=== PATIENT | female | born 1985 | race Caucasian/White ===

== ENCOUNTER 2020-07-18 17:19 | Outpatient (REF) | payer OTHER, SELFPAY ==
[2020-07-19 04:41] LABS: HBS Num1 52.74 mIU/mL (0-7.99); HBc Num1 0.04 S/CO (0.00-0.79); Hepatitis B Core Antibody Nonreactive (Nonreactive); ~HepC Num1 0.08 S/CO (0.00-0.79); ~Hepatitis B Surface Antibody REACTIVE (Nonreactive); ~Hepatitis C Antibody Nonreactive (Nonreactive)
[2020-07-19 04:44] LABS: HBsAGNum1 0.17 S/CO (0.00-0.99); Hepatitis B Surface Antigen Negative (Negative)
[2020-07-22 04:09] LABS: Hepatitis A Antibody IgG Nonreactive (Nonreactive); ~Hepatitis A Antibody IgG 0.28 S/CO (0.00-0.99)
== END 2020-07-18 17:20 | disposition home or self-care (01) ==
LOC: HO.LAB 17:19
PROVIDERS: PCP Pediatrics; Visit Provider Internal Medicine Gastroenterology
DX: R79.89 Other specified abnormal findings of blood chemistry (principal)
CPT/HCPCS: 86704; 86706; 86708; 86803; 87340

== ENCOUNTER 2020-07-20 16:11 | Emergency (ER) | payer OTHER, SELFPAY ==
[2020-07-20 18:58] VITALS: BP 178/88; PULSE 95; RESP 16; TEMP 36.9; O2SAT 99; BMI 37.4
--- NOTE | 2020-07-20 20:27 | XR_ITS ---
EXAMINATION: PORTABLE CHEST 1 VIEW CLINICAL INFORMATION: ruq pain, r flank pain . COMPARISON: No recent pertinent prior studies are available for comparison. TECHNIQUE: Portable frontal view of the chest was obtained. FINDINGS: The lungs are well expanded. No focal infiltrate, effusion, edema, or pneumothorax. Cardiac and mediastinal silhouettes are within normal limits for technique. No acute bony abnormality seen. XR/XR chest 1V IMPRESSION: No evidence of acute disease.
--- NOTE | 2020-07-20 20:27 | CT_ITS ---
EXAMINATION: CT ABDOMEN AND PELVIS WITHOUT CONTRAST CLINICAL INFORMATION: Right upper quadrant pain. Flank pain. COMPARISON: Ultrasound of abdomen 11/03/2019. CT scan abdomen pelvis 12/01/2016 TECHNIQUE: Multidetector volumetric imaging was performed from the superior aspect of the liver through the pubic symphysis. Sagittal and coronal reformatted images were obtained on the technologist's workstation. This CT examination was performed using dose optimization techniques as appropriate, variously including the following: *Automated exposure control *Adjustment of mA and/or kV according to patient size (this includes techniques or standardized protocols for targeted exams where dose is matched to indication/reason for exam; i.e. extremities or head) *Use of iterative reconstruction technique DLP: 864 mGy-cm FINDINGS: LUNG BASES: The visualized lung bases are unremarkable. LIVER, GALLBLADDER, AND BILIARY TREE: The liver is normal in size, shape, and attenuation. No focal hepatic lesion or biliary ductal dilatation is present. The gallbladder is unremarkable with no evidence of radiopaque gallstones, gallbladder wall thickening, or obvious pericholecystic inflammatory changes. PANCREAS: Unremarkable. SPLEEN: Unremarkable. ADRENAL GLANDS: Unremarkable. KIDNEYS AND URETERS: The kidneys are normal in size, shape, and attenuation. No hydronephrosis, hydroureter, or calculi seen. No perinephric stranding. BLADDER: Unremarkable. GASTROINTESTINAL TRACT: Status post gastric surgery with surgical suture line along the greater curvature the stomach. No acute change of the bowel. No bowel obstruction. No bowel wall thickening or edema. Moderate volume of stool in colon. No diverticula. The appendix is normal. ABDOMINAL WALL: No significant hernia is appreciated. LYMPH NODES: Normal. VASCULAR: Unremarkable. PELVIC VISCERA: Unremarkable. OSSEOUS STRUCTURES: Unremarkable. CT/CT abdomen pelvis wo con IMPRESSION: No acute abnormality CT scan abdomen pelvis.
[2020-07-20 20:29] VITALS: BP 155/95; PULSE 96; RESP 16; TEMP 37; O2SAT 100
[2020-07-20 20:54] LABS: MANUAL DIFF FLAG NO
[2020-07-20 20:55] LABS: Basophils Percent Auto 0.5 % (0-2); Eosinophils Absolute Auto 0.2 X10*3/uL (0.0-0.4); Eosinophils Percent Auto 2.8 % (0-4); Hematocrit 40.9 % (37-47); Hemoglobin 13.7 g/dl (12.0-16.0); Imm Gran Abs Auto 0.01 X10*3/uL (0.00-0.03); Imm Gran Pct Auto 0.1 % (0.0-0.4); Lymphocytes Absolute Auto 1.9 X10*3/uL (1.2-4.9); Lymphocytes Percent Auto 24.7 % (20-40); Mean Corpuscular HGB Conc 33.5 g/dl (31.0-35.0); Mean Corpuscular Hemoglobin 31.2 pg (27.0-33.0); Mean Corpuscular Volume 93.2 fL (80-98); Mean Platelet Volume 10.6 fL (9.4-12.3); Monocytes Absolute Auto 0.6 X10*3/uL (0.1-1.2); Monocytes Percent Auto 7.9 % (2-11); Platelet Count 229 X10*3/uL (160-400); Red Blood Count 4.39 X10*6/uL (4.20-5.50); Red Cell Distribution Width 12.8 % (11.0-16.0); White Blood Count 7.9 X10*3/uL (4.8-10.8)
[2020-07-20 21:01] LABS: Glucose Urine UA NEG (NEG); Leukocyte Esterase Urine NEG (NEG); Nitrite Urine NEG (NEG); Specific Gravity - Urine 1.025 (1.005-1.025); Urine Blood NEG (NEG); Urine Ketones >=80 MG/DL (NEG); Urine Protein NEG (NEG-TRACE)
[2020-07-20 21:06] LABS: Appearance Urine CLEAR; Color Urine YELLOW; UPreg QC Valid YES; Urine Pregnancy NEGATIVE (NEGATIVE)
[2020-07-20 21:13] LABS: Alanine Aminotransferase 33 U/L (0-31); Albumin Level 4.5 g/dL (3.5-5.0); Alkaline Phosphatase 79 U/L (39-117); Anion Gap 13 (12-20); Aspartate Amino Transferase 35 U/L (5-31); Bilirubin Total 0.9 mg/dL (0.0-1.0); Blood Urea Nitrogen 7 mg/dL (9-16); Calcium 8.9 mg/dL (8.4-10.2); Carbon Dioxide 27 mmol/L (22-29); Chloride 97 mmol/L (96-108); Creatinine Clr Calc Pharmacy 133.9; Estimated Glomerular Filt Rate > 60; Glucose Random 84 mg/dL (60-115); Lipase 17 U/L (8-78); Potassium 3.4 mmol/l (3.3-5.1); Sodium 134 mmol/L (135-145)
--- NOTE | 2020-07-20 21:29 | ED.ABDPAIN ---
HPI - Abdominal Pain General Chief Complaint: Abdominal Pain Stated Complaint: Abdominal Pain Time Seen by Provider: 07/20/20 20:26 Source: patient Mode of arrival: ambulatory Limitations: no limitations History of Present Illness HPI narrative: 35-year-old female past medical history of gastric sleeve, hypertension, and peripheral edema presents with right upper quadrant abdominal pain that radiates to the right flank and right scapula. This pain is 10/10 , is intermittent, started 1 day ago, and causes nausea. She has been unable to eat or drink for the past few hours, and states that she could not take her omeprazole or other medications because of nausea. she does not report any chest pain, palpitations, fevers, chills, abdominal distention, dysuria, hematuria, and sick contacts. MD elicited complaint: abdominal pain and flank pain Pertinent past history: gastritis Onset (ago): day(s) ( One) Pain Consistency: intermittent Location: RUQ and R flank Severity: severe Pain scale (0-10): 10 Quality: cramping, stabbing and aching Radiation: epigastric and R flank Relieving factors: nothing Associated symptoms: nausea Related Data Patient : No Allergies Allergy/AdvReac Type Severity Reaction Status Date / Time No Known Allergies Allergy Unverified 06/02/20 15:26 Benadryl Allergy Unknown hives Uncoded 03/04/20 00:00 Review of Systems Review of Systems Constitutional: No Weight loss, No Fever, No Chills, No Night Sweats, No Fatigue, No Malaise ENT/Mouth: No Hearing loss, No Ear Pain, No Nasal Congestion, No Sinus Pain, No Hoarseness, No sore throat, No Rhinorrhea, No Swallowing Difficulty Eyes: No Eye Pain, No Swelling, No Redness, No Foreign Body, No Discharge, No Vision Changes Cardiovascular: No Chest Pain, No SOB, No Dyspnea on Exertion, No Orthopnea, No Edema, No Palpitations Respiratory: No Cough, No Sputum, No Wheezing, No Smoke Exposure, No Dyspnea Gastrointestinal: Positive Nausea, no Vomiting, no Diarrhea, positive abdominal Pain, No Hematochezia, No Melena Genitourinary: no irregular bleeding, No Dysuria, No Urinary Frequency, No Hematuria, No Urinary Incontinence, No Urgency, positive Flank Pain, No Urinary Flow Changes, No Hesitancy Musculoskeletal: No joint pain, No Myalgias, No Joint Swelling Skin: No Skin Lesions, No rash Neuro: No Weakness, No Numbness, No Paresthesias, No Loss of Consciousness, No Dizziness, No Headache Psych: No Anxiety/Panic, No Depression, No SI/HI/AH/VH, No Social Issues Heme/Lymph: No Bruising, No Bleeding,No Lymphadenopathy Endocrine: No Polyuria, No Polydipsia, No Temperature Intolerance Yes all other systems are reviewed and are negative Physical Exam Vital Signs: Vital Signs: Vital Signs Temp Pulse Resp BP Pulse Ox 07/20/20 22:28 98.5 F 110 H 20 128/73 97 07/20/20 21:59 93 20 159/75 H 98 07/20/20 20:29 98.6 F 96 16 155/95 H 100 07/20/20 18:58 98.5 F 95 16 178/88 H 99 Body Mass Index 37.4 Appearance: Alert. Oriented X3. moderate distress. Eyes: Pupils equal, round and reactive to light. ENT: Pharynx normal. Neck: Normal inspection. Neck supple. CVS: Normal heart rate and rhythm. Pulses normal. Respiratory: No respiratory distress. Breath sounds normal. Abdomen: Soft and tender to palpation to the right upper, right lower, and epigastric quadrants. Positive CVA tenderness to the right side. Negative psoas and obturator. Negative Boggs and McBurney sign. Skin: Skin warm and dry. Normal skin color. Normal skin turgor. Extremities: No lower extremity edema. Neuro: No motor deficit. No sensory deficit. Course Course Course Narrative: 35-year-old patient status post gastric sleeve in 2017 presents with right upper quadrant abdominal pain, radiating to the right flank. Plan of care is for CT scan of the abdomen as she has had extensive abdominal surgeries, CBC, Chem 7, and pain management with fluid resuscitation. Lab values show mild hyponatremia at 134, repleted with 1 L of normal saline, minimally elevated AST at 35, ALT at 33, CT scan is negative for acute findings. Patient's heart rate is slightly elevated at 110, patient states to be extraordinarily anxious and Has been crying intermittently. Patient is hemodynamically stable, no indication of sepsis as heart rate is elevated due to anxiety. Plan of care is for patient to be discharged home with follow-up with Gastroenterology. She does have an appointment on Saturday. Patient does understand that even though the CT scan is negative that this could also be an early appendicitis, and that if symptoms persist that she must return for further evaluation. Patient verbalized understanding of and agrees to plan of care to discharge home. MDM - Abdominal Pain Differential Diagnosis Differential diagnosis: Likely abdominal pain, acute appendicitis, bowel perforation, calculus of kidney, constipation, diverticulitis, endometriosis, gastroenteritis, gastritis, ovarian cyst, pancreatitis, peptic ulcer disease, renal colic and small bowel obstruction Medical Records Attestation: I reviewed the patient's medical records. Lab Data Attestation: I reviewed the patient's lab results. Result diagrams: 07/20/20 20:39 07/20/20 20:39 Labs: Lab Results 07/20/20 07/20/20 07/20/20 Range/Units 20:39 20:39 20:39 WBC 7.9 (4.8-10.8) X10*3/uL RBC 4.39 (4.20-5.50) X10*6/uL Hgb 13.7 (12.0-16.0) g/dl Hct 40.9 (37-47) % MCV 93.2 (80-98) fL MCH 31.2 (27.0-33.0) pg MCHC 33.5 (31.0-35.0) g/dl RDW 12.8 (11.0-16.0) % Plt Count 229 (160-400) X10*3/uL MPV 10.6 (9.4-12.3) fL Immature Gran % (Auto) 0.1 (0.0-0.4) % Neut % (Auto) 64.0 (45-73) % Lymph % (Auto) 24.7 (20-40) % Loving % (Auto) 7.9 (2-11) % Eos % (Auto) 2.8 (0-4) % Baso % (Auto) 0.5 (0-2) % Lymph # (Auto) 1.9 (1.2-4.9) X10*3/uL Loving # (Auto) 0.6 (0.1-1.2) X10*3/uL Eos # (Auto) 0.2 (0.0-0.4) X10*3/uL Baso # (Auto) 0.0 (0.0-0.2) X10*3/uL Abs Immat Gran (auto) 0.01 (0.00-0.03) X10*3/uL Absolute Neuts (auto) 5.0 (2.0-8.3) X10*3/uL Absolute Nucleated RBC 0.000 (0.0-0.012) X10*3/uL Nucleated RBC % (auto) 0.0 (0.0-0.2) /100WBC Sodium 134 L (135-145) mmol/L Potassium 3.4 (3.3-5.1) mmol/l Chloride 97 (96-108) mmol/L Carbon Dioxide 27 (22-29) mmol/L Anion Gap 13 (12-20) BUN 7 L (9-16) mg/dL Creatinine 0.67 (0.5-1.4) mg/dL Estim Creat Clear Calc 133.9 Estimated GFR > 60 Random Glucose 84 (60-115) mg/dL Calcium 8.9 (8.4-10.2) mg/dL Total Bilirubin 0.9 (0.0-1.0) mg/dL AST 35 H (5-31) U/L ALT 33 H (0-31) U/L Alkaline Phosphatase 79 (39-117) U/L Total Protein 7.0 (6.5-8.0) g/dL Albumin 4.5 (3.5-5.0) g/dL Lipase 17 (8-78) U/L Urine Color YELLOW Urine Appearance CLEAR Urine pH 6.0 (5.0-8.0) Ur Specific Odell 1.025 (1.005-1.025) Urine Protein NEG (NEG-TRACE) MG/DL Urine Glucose (UA) NEG (NEG) MG/DL Urine Ketones >=80 (NEG) MG/DL Urine Blood NEG (NEG) Urine Nitrite NEG (NEG) Ur Leukocyte Esterase NEG (NEG) Urine Test NEGATIVE (NEGATIVE) Imaging Data CT scan - abdomen: Attestation: I personally reviewed and interpreted this imaging study as follows: Radiologist's impression: FINDINGS: LUNG BASES: The visualized lung bases are unremarkable. LIVER, GALLBLADDER, AND BILIARY TREE: The liver is normal in size, shape, and attenuation. No focal hepatic lesion or biliary ductal dilatation is present. The gallbladder is unremarkable with no evidence of radiopaque gallstones, gallbladder wall thickening, or obvious pericholecystic inflammatory changes. PANCREAS: Unremarkable. SPLEEN: Unremarkable. ADRENAL GLANDS: Unremarkable. KIDNEYS AND URETERS: The kidneys are normal in size, shape, and attenuation. No hydronephrosis, hydroureter, or calculi seen. No perinephric stranding. BLADDER: Unremarkable. GASTROINTESTINAL TRACT: Status post gastric surgery with surgical suture line along the greater curvature the stomach. No acute change of the bowel. No bowel obstruction. No bowel wall thickening or edema. Moderate volume of stool in colon. No diverticula. The appendix is normal. ABDOMINAL WALL: No significant hernia is appreciated. LYMPH NODES: Normal. VASCULAR: Unremarkable. PELVIC VISCERA: Unremarkable. OSSEOUS STRUCTURES: Unremarkable. CT/CT abdomen pelvis wo con IMPRESSION: No acute abnormality CT scan abdomen pelvis. Chest x-ray: Attestation: I personally reviewed and interpreted this imaging study as follows: Radiologist's impression: COMPARISON: No recent pertinent prior studies are available for comparison. TECHNIQUE: Portable frontal view of the chest was obtained. FINDINGS: The lungs are well expanded. No focal infiltrate, effusion, edema, or pneumothorax. Cardiac and mediastinal silhouettes are within normal limits for technique. No acute bony abnormality seen. XR/XR chest 1V IMPRESSION: No evidence of acute disease. Discharge Plan Discharge Clinical Impression: History of sleeve gastrectomy Abdominal pain Qualifiers: Abdominal location: right upper quadrant Qualified Code(s): R10.11 - Right upper quadrant pain Patient Disposition: Home, Self-Care Instructions: Abdominal Pain (ED) Additional Instructions: you were evaluated for right upper quadrant pain. CT scan of the abdomen is negative for acute findings. If pain persists or you develop fevers, chills, or any other concerning symptoms please return for re-evaluation, this pain could always be an early appendicitis. Please continue to follow-up with your assisted living home director as scheduled On Saturday. Thank you for choosing this emergency department for evaluation. Please follow-up with primary care physician as needed. Return to the emergency department for any new, concerning, or worsening symptoms. Interventions: ED Discharge Assessment Last Done: 07/20/20 23:15 Discharge Date/Time: 07/20/20 23:16 [facility] Past Medical History Attestation statement: The following information was validated with the patient. Source: old records reviewed Medical History (Updated 07/21/20 @ 00:00 by Yahaira Cooper) Asthma Gastritis Hypertension Surgical History (Updated 07/20/20 @ 22:58 by Emilee Harden NP) History of colonoscopy History of esophagogastroduodenoscopy (EGD) History of sleeve gastrectomy Family History Family History Father HTN (hypertension) Mother HTN (hypertension) Paternal Grandfather CAD (coronary artery disease) Myocardial infarction Maternal Grandfather Stroke Social History Social History Alcohol intake: former Smoking Status: Never smoker Use of substances other than those prescribed or required for medical reasons: No Advance Directives: No Advance Directives Information Provided: Yes
[2020-07-20] MEDS: 0.9 % Sodium Chloride 1,000 ML 999 ML IVCONT (21:42)
[2020-07-20] MEDS: Ketorolac Tromethamine 30 MG/ML VIAL IVPUSH (21:42)
[2020-07-20] MEDS: ondansetron HCL 4 MG/2 ML VIAL IVPUSH (21:43)
[2020-07-20] MEDS: Morphine Sulfate 4 MG/ML CARTRIDGE IVPUSH (21:43)
[2020-07-20 21:59] VITALS: BP 159/75; PULSE 93; RESP 20; O2SAT 98
[2020-07-20 22:28] VITALS: BP 128/73; PULSE 110; RESP 20; TEMP 36.9; O2SAT 97
== END 2020-07-20 23:16 | disposition home or self-care (01) ==
PROVIDERS: Nurse Practitioner Family; Emergency Provider Internal Medicine; PCP Pediatrics
DX: R10.11 Right upper quadrant pain (principal); I10 Essential (primary) hypertension; Z98.84 Bariatric surgery status; Z79.899 Other long term (current) drug therapy
CPT/HCPCS: 36415; 71045; 74176; 80053; 81003; 81025; 83690; 85025; 96361; 96374; 96375; 99284; J1885; J2270; J2405

== ENCOUNTER 2020-07-26 08:16 | Outpatient (REF) | payer OTHER, SELFPAY ==
--- NOTE | 2020-07-26 08:20 | FL_ITS ---
EXAMINATION: XR GI SERIES CLINICAL INFORMATION: Epigastric pain. History of gastric sleeve procedure COMPARISON: Previous CT of the abdomen and pelvis July 2020 and abdominal ultrasound October 2019 TECHNIQUE: Upper GI was performed using thin and thick barium and effervescent granules. FINDINGS: There is significant gastroesophageal reflux. There is a small fixed hiatal hernia. No esophageal mass or stricture is appreciated. There are postsurgical changes from gastric sleeve procedure. The stomach and duodenum are otherwise normal appearing. No fold thickening, mass, ulcer or stricture is seen. FLUOROSCOPY TIME: 1.1 minutes DOSE AREA PRODUCT: 11 palafox per centimeter squared. Total dose 42 mgy. 34 saved fluoroscopic images. FL/FL upper GI series IMPRESSION: Significant gastroesophageal reflux and small fixed hiatal hernia. Postsurgical changes from gastric procedure.
== END 2020-07-26 08:17 | disposition home or self-care (01) ==
LOC: HO.XRAY 08:16
PROVIDERS: PCP Pediatrics; Visit Provider Internal Medicine Gastroenterology
DX: R10.13 Epigastric pain (principal)
CPT/HCPCS: 74240

== ENCOUNTER → 2022-05-03 11:45 | Outpatient (BNVA) | payer OTHER, SELFPAY | PROVIDERS: PCP Pediatrics; Visit Provider Internal Medicine Gastroenterology | DX: K21.9 Gastro-esophageal reflux disease without esophagitis (principal); Z90.3 Acquired absence of stomach [part of] | CPT/HCPCS: 99212 ==

== ENCOUNTER → 2022-06-19 08:50 | Outpatient (BNVA) | payer OTHER, SELFPAY | PROVIDERS: PCP Pediatrics; Visit Provider Physician Assistant | DX: E66.9 Obesity, unspecified (principal); K21.9 Gastro-esophageal reflux disease without esophagitis; Z90.3 Acquired absence of stomach [part of]; Z68.37 Body mass index [BMI] 37.0-37.9, adult | CPT/HCPCS: 99212 ==

== ENCOUNTER 2022-06-20 08:59 | Outpatient (REF) | payer OTHER, SELFPAY ==
[2022-06-20 09:11] LABS: MANUAL DIFF FLAG NO
[2022-06-20 10:17] LABS: Basophils Percent Auto 0.7 % (0-2); Eosinophils Absolute Auto 0.3 X10*3/uL (0.0-0.4); Eosinophils Percent Auto 4.6 % (0-4); Hematocrit 40.7 % (37.0-47.0); Hemoglobin 13.2 g/dl (12.0-16.0); Imm Gran Abs Auto 0.02 X10*3/uL (0.00-0.03); Imm Gran Pct Auto 0.3 % (0.0-0.4); Lymphocytes Absolute Auto 1.6 X10*3/uL (1.2-4.9); Lymphocytes Percent Auto 27.2 % (20-40); Mean Corpuscular HGB Conc 32.4 g/dl (31.0-35.0); Mean Corpuscular Hemoglobin 30.1 pg (27.0-33.0); Mean Corpuscular Volume 92.7 fL (80.0-98.0); Mean Platelet Volume 11.2 fL (9.4-12.3); Monocytes Absolute Auto 0.4 X10*3/uL (0.1-1.2); Monocytes Percent Auto 7.3 % (2-11); Neutrophils Absolute Auto 3.5 x10*3/uL (2.0-8.3); Neutrophils Percent Auto 59.9 % (45-73); Platelet Count 223 X10*3/uL (160-400); Red Blood Count 4.39 X10*6/uL (4.20-5.50); Red Cell Distribution Width 13.2 % (11.0-16.0); White Blood Count 5.9 X10*3/uL (4.8-10.8)
[2022-06-20 10:46] LABS: Estimated Average Glucose 91 mg/dL; Hemoglobin A1c % 4.8 %
[2022-06-20 11:08] LABS: Alanine Aminotransferase 21 U/L (0-31); Albumin Level 4.6 g/dL (3.5-5.0); Alkaline Phosphatase 89 U/L (39-117); Anion Gap 17 (12-20); Aspartate Amino Transferase 24 U/L (5-31); Bilirubin Total 0.7 mg/dL (0.0-1.0); Blood Urea Nitrogen 10 mg/dL (9-16); C Reactive Protein 1.02 mg/dL (< or = 0.50); Calcium 9.2 mg/dL (8.4-10.2); Carbon Dioxide 21 mmol/L (22-29); Chloride 107 mmol/L (96-108); Cholesterol 166 mg/dL; Estimated Glomerular Filt Rate > 60; Glucose Random 85 mg/dL (60-115); HDL Cholesterol 64 mg/dL; Iron 109 mcg/dL (30-160); LDL Cholesterol Calculated 93 mg/dl; Percent Iron Saturation 26 % (15-50); Potassium 4.6 mmol/L (3.3-5.1); Sodium 140 mmol/L (135-145); Total Iron Binding Capacity 426 mcg/dL (228-428); Total Protein 7.1 g/dL (6.5-8.0); Triglycerides 49 mg/dL; Unsaturated Iron Binding 317 ug/dL
[2022-06-20 11:20] LABS: Ferritin 25 ng/mL (10-122); TSH reflex Free T4 1.27 uIU/mL (0.32-4.0); Vitamin D 25-OH Total 26.7 ng/mL (>30)
[2022-06-20 11:28] LABS: Folate > 20.0 ng/mL (> or = 4.0); Vitamin B12 393 pg/mL (200-900)
[2022-06-20 11:52] LABS: Insulin 7 uU/mL (2-29)
[2022-06-22 13:22] LABS: Calcium (PTHI) 9.1 mg/dL (8.6-10.2); PTHI 94 pg/mL (16-77)
[2022-06-22 19:52] LABS: Zinc 83 mcg/dL (60-130)
[2022-06-23 20:47] LABS: Vitamin A 45 mcg/dL (38-98)
[2022-06-25 06:06] LABS: Vitamin B1 18 nmol/L (8-30)
== END 2022-06-20 09:00 | disposition home or self-care (01) ==
LOC: HO.LAB 08:59
PROVIDERS: PCP Pediatrics; Visit Provider Physician Assistant
DX: E66.9 Obesity, unspecified (principal); K21.9 Gastro-esophageal reflux disease without esophagitis; Z90.3 Acquired absence of stomach [part of]
CPT/HCPCS: 36415; 80053; 80061; 82306; 82607; 82728; 82746; 83036; 83525; 83540; 83970; 84425; 84443; 84590; 84630; 85025; 86140

== ENCOUNTER → 2022-06-28 14:13 | Outpatient (BNVA) | payer OTHER, SELFPAY | PROVIDERS: PCP Pediatrics; Visit Provider Internal Medicine Gastroenterology | DX: K21.9 Gastro-esophageal reflux disease without esophagitis (principal); Z90.3 Acquired absence of stomach [part of] | CPT/HCPCS: 99212 ==

== ENCOUNTER 2022-07-24 07:59 | Outpatient (REF) | payer OTHER, SELFPAY ==
[2022-07-25 12:47] LABS: H Pylori Breath Test Negative (Negative)
== END 2022-07-24 08:00 | disposition home or self-care (01) ==
LOC: HO.LNP 07:59
PROVIDERS: PCP Pediatrics; Visit Provider Physician Assistant
DX: E66.9 Obesity, unspecified (principal); K21.9 Gastro-esophageal reflux disease without esophagitis; Z90.3 Acquired absence of stomach [part of]
CPT/HCPCS: 83013; 99211

== ENCOUNTER 2022-08-01 08:39 | Outpatient (REF) | payer OTHER, SELFPAY ==
--- NOTE | ~2022-08-01 | FL_ITS ---
PROCEDURE: XR FLUOROSCOPY UPPER GI WITH AIR CLINICAL INFORMATION: Obesity. COMPARISON: 07/20/2020 TECHNIQUE: Air-contrast upper GI examination with thin and thick barium. FINDINGS: There is normal apposition of the vocal cords while saying E . There is normal elevation of the soft palate while saying candy . Patient swallowed thin and thick barium without difficulty. No nasopharyngeal reflux or tracheal aspiration identified. There is a small to moderate-sized hiatal hernia present with free gastroesophageal reflux into a distended esophagus with the reflux being persistent and to the level of the thoracic inlet. There is hypomotility of the esophagus. No esophageal mucosal erosion is appreciated. The appearance is similar to prior study of 07/26/2020. Patient status post gastric sleeve surgery. No gastric ulceration or mass appreciated. The duodenal bulb and sweep appeared unremarkable without evidence of delay in gastric emptying. FLUOROSCOPY TIME: 2.4 minutes. DOSE AREA PRODUCT: 20.888 Gy-cm2 (palafox-centimeter squared). FL/FL upper GI w air IMPRESSION: [id number] size hiatal hernia with free gastroesophageal reflux to the level of the thoracic inlet which clears very slowly with hypomotility of the esophagus.
== END 2022-08-01 08:40 | disposition home or self-care (01) ==
LOC: HO.XRAY 08:39
PROVIDERS: PCP Pediatrics; Visit Provider Physician Assistant
DX: E66.9 Obesity, unspecified (principal); K21.9 Gastro-esophageal reflux disease without esophagitis; Z90.3 Acquired absence of stomach [part of]
CPT/HCPCS: 74246

== ENCOUNTER 2022-08-23 11:06 | Emergency (ER) | payer OTHER, SELFPAY ==
--- NOTE | ~2022-08-23 | CT_ITS ---
EXAMINATION: CT ABDOMEN AND PELVIS WITHOUT CONTRAST CLINICAL INFORMATION: Right flank pain. COMPARISON: CT scan of the abdomen and pelvis dated 07/20/2020. TECHNIQUE: Multidetector volumetric imaging was performed from the superior aspect of the liver through the pubic symphysis. Sagittal and coronal reformatted images were obtained on the technologist's workstation. Intravenous and oral contrast limits visceral evaluation. This CT examination was performed using dose optimization techniques as appropriate, variously including the following: *Automated exposure control *Adjustment of mA and/or kV according to patient size (this includes techniques or standardized protocols for targeted exams where dose is matched to indication/reason for exam; i.e. extremities or head) *Use of iterative reconstruction technique DLP: 857 mGy-cm FINDINGS: LUNG BASES: The visualized lung bases are unremarkable. LIVER, GALLBLADDER, AND BILIARY TREE: Mild diffuse decreased hepatic attenuation without focal abnormality. The gallbladder/biliary tree are unremarkable. PANCREAS: Unremarkable. SPLEEN: Unremarkable. ADRENAL GLANDS: Unremarkable. KIDNEYS AND URETERS: The right kidney shows a 0.2 cm interpolar nonobstructing calculus. The left kidney is unremarkable. No hydroureteronephrosis bilaterally. BLADDER: Unremarkable. GASTROINTESTINAL TRACT: Gastric posterior surgical changes are seen. There is a small hiatal hernia. The remainder the stomach is unremarkable. The small bowel and appendix are unremarkable. The colon and rectum are unremarkable. ABDOMINAL WALL: Periumbilical postsurgical changes without significant change. LYMPH NODES: No lymphadenopathy. VASCULAR: Unremarkable. PELVIC VISCERA: Unremarkable. OSSEOUS STRUCTURES: Unremarkable. CT/CT abdomen pelvis wo IV con IMPRESSION: 1. No acute intra-abdominal/pelvic abnormality to explain the patient's pain. 2. Nonobstructing right interpolar intrarenal calculus. No hydroureteronephrosis. 3. Hepatic steatosis. 4. Gastric postsurgical changes with small hiatal hernia.
[2022-08-23 11:15] VITALS: BP 175/97; PULSE 80; RESP 20; TEMP 36.7; O2SAT 95; BMI 37.2
--- NOTE | 2022-08-23 11:15 | ED.ABDPAIN ---
HPI - Abdominal Pain General Chief Complaint: Abdominal Pain <Nicole Garcia NP - Last Filed: 08/23/22 11:20> Stated Complaint: R flank pain <Nicole Garcia NP - Last Filed: 08/23/22 11:20> Time Seen by Provider: 08/23/22 15:35 <Nicole Garcia NP - Last Filed: 08/23/22 11:20> Source: patient <Rk King MD - Last Filed: 08/23/22 16:37> Mode of arrival: ambulatory <Rk King MD - Last Filed: 08/23/22 16:37> Limitations: no limitations <Rk King MD - Last Filed: 08/23/22 16:37> History of Present Illness HPI narrative: Right abdominal pain for 4 days, lightheaded, patient has a history of gastric sleeve. Patient has pressure when she urinates <Rk King MD - Last Filed: 08/23/22 16:37> MD elicited complaint: abdominal pain and flank pain <Rk King MD - Last Filed: 08/23/22 16:37> Onset (ago): day(s) <Rk King MD - Last Filed: 08/23/22 16:37> Pain Consistency: constant <Rk King MD - Last Filed: 08/23/22 16:37> Severity: mild <Rk King MD - Last Filed: 08/23/22 16:37> Quality: fullness <Rk King MD - Last Filed: 08/23/22 16:37> Relieving factors: nothing <Rk King MD - Last Filed: 08/23/22 16:37> Associated symptoms: denies other symptoms <Rk King MD - Last Filed: 08/23/22 16:37> Related Data Home Medications: Home Medications Medication Instructions Recorded Confirmed ferrous sulfate 325 mg (65 mg 325 mg PO Q OTHER DAY 05/03/22 06/28/22 iron) tablet labetalol 100 mg tablet 100 mg PO BID 05/03/22 06/28/22 vitamin with calcium 1 tab PO DAILY 05/03/22 06/28/22 no.72-iron 27 mg-folic acid 1 mg tablet ( Vitamins Plus Low Iron) Previous Rx's Medication Instructions Recorded omeprazole 40 mg capsule,delayed 40 mg PO DAILY 60 days #60 caps 05/03/22 release cholecalciferol (vitamin D3) 25 25 mcg PO DAILY #30 caps 06/21/22 mcg (1,000 unit) capsule cyanocobalamin (vitamin B-12) 100 100 mcg PO DAILY #30 tabs 06/21/22 mcg tablet famotidine 20 mg tablet 20 mg PO BID 30 days #60 tabs 06/28/22 <Nicole Garcia NP - Last Filed: 08/23/22 11:20> Allergies/Adverse Reactions: Allergies Allergy/AdvReac Type Severity Reaction Status Date / Time No Known Allergies Allergy Verified 07/24/22 08:11 Benadryl Allergy Unknown hives Uncoded 06/19/22 09:05 <Nicole Garcia NP - Last Filed: 08/23/22 11:20> Review of Systems Constitutional: Reports no additional constitutional complaints <Rk King MD - Last Filed: 08/23/22 16:37> Eyes: Reports no additional eye complaints <Rk King MD - Last Filed: 08/23/22 16:37> Denies dizziness <Rk King MD - Last Filed: 08/23/22 16:37> Cardiovascular: Reports no additional cardiovascular complaints <Rk King MD - Last Filed: 08/23/22 16:37> Respiratory: Reports as per HPI <Rk King MD - Last Filed: 08/23/22 16:37> Gastrointestinal: Reports no additional gastrointestinal complaints <Rk King MD - Last Filed: 08/23/22 16:37> Genitourinary: Reports no additional female genitourinary complaints <Rk King MD - Last Filed: 08/23/22 16:37> Musculoskeletal: Reports no additional musculoskeletal complaints <Rk King MD - Last Filed: 08/23/22 16:37> Skin/Breast: Denies rash <Rk King MD - Last Filed: 08/23/22 16:37> Reports system reviewed and no additional complaints, except as documented, Denies dizziness and Denies Sensory deficit (Neuro) <Rk King MD - Last Filed: 08/23/22 16:37> Psychiatric: Denies anxiety <Rk King MD - Last Filed: 08/23/22 16:37> [facility] Past Medical History Medical History: Medical History (Updated 08/23/22 @ 16:36 by Rk King MD) Asthma Gastritis Hypertension <Nicole Garcia NP - Last Filed: 08/23/22 11:20> Surgical History: Surgical History History of colonoscopy History of esophagogastroduodenoscopy (EGD) History of sleeve gastrectomy <Nicole Garcia NP - Last Filed: 08/23/22 11:20> Family History Family History: Family History Father HTN (hypertension) Mother HTN (hypertension) Paternal Grandfather CAD (coronary artery disease) Myocardial infarction Maternal Grandfather Stroke <Nicole Garcia NP - Last Filed: 08/23/22 11:20> Social History Social History: Social History Alcohol intake: former Smoked in Last 30 Days: No Use of substances other than those prescribed or required for medical reasons: No Advance Directives: No Advance Directives Information Provided: No Patient : No <Nicole Garcia NP - Last Filed: 08/23/22 11:20> Physical Exam ED Vital Signs: Vital Signs - 24 hr 08/23/22 11:15 08/23/22 16:00 Temperature 98.1 F 98.1 F Pulse Rate 80 77 Respiratory Rate 20 18 Blood Pressure 175/97 H 170/92 H Pulse Oximetry 95 100 Oxygen Delivery Method Room Air Room Air BMI result Body Mass Index 37.2 <Nicole Garcia NP - Last Filed: 08/23/22 11:20> Vital Signs - 24 hr 08/23/22 11:15 08/23/22 16:00 Temperature 98.1 F 98.1 F Pulse Rate 80 77 Respiratory Rate 20 18 Blood Pressure 175/97 H 170/92 H Pulse Oximetry 95 100 Oxygen Delivery Method Room Air Room Air BMI result Body Mass Index 37.2 <Rk King MD - Last Filed: 08/23/22 16:37> Vital Signs - 24 hr 08/23/22 11:15 08/23/22 16:00 Temperature 98.1 F 98.1 F Pulse Rate 80 77 Respiratory Rate 20 18 Blood Pressure 175/97 H 170/92 H Pulse Oximetry 95 100 Oxygen Delivery Method Room Air Room Air BMI result Body Mass Index 37.2 <Nikia López MD - Last Filed: 08/23/22 17:00> Const General: healthy appearing <Rk King MD - Last Filed: 08/23/22 16:37> Nutritional Appearance: average body habitus <Rk King MD - Last Filed: 08/23/22 16:37> Orientation/consciousness: oriented to person and patient oriented x3 <Rk King MD - Last Filed: 08/23/22 16:37> Limitations: no limitations <Rk King MD - Last Filed: 08/23/22 16:37> HENMT Head: Yes normal to inspection <Rk King MD - Last Filed: 08/23/22 16:37> Ears: external ears normal <Rk King MD - Last Filed: 08/23/22 16:37> General nose exam: Normal external nose present <Rk King MD - Last Filed: 08/23/22 16:37> Mouth: Normal oral and palatal mucosa present and oropharynx normal <Rk King MD - Last Filed: 08/23/22 16:37> Throat: Yes posterior oropharynx normal <Rk King MD - Last Filed: 08/23/22 16:37> Eyes General: appearance normal, both eyes and all related structures <Rk King MD - Last Filed: 08/23/22 16:37> Neck Neck: Yes normal visual inspection <Rk King MD - Last Filed: 08/23/22 16:37> Chest Chest palpation & inspection: normal inspection of the chest <Rk King MD - Last Filed: 08/23/22 16:37> Resp Auscultation: clear to auscultation bilaterally <Rk King MD - Last Filed: 08/23/22 16:37> Cardio Jugular venous distension: no JVD <Rk King MD - Last Filed: 08/23/22 16:37> Rate: regular rate <Rk King MD - Last Filed: 08/23/22 16:37> Rhythm: regular rhythm <Rk King MD - Last Filed: 08/23/22 16:37> Heart sounds: S1 normal heart sound present and S2 normal heart sound present <Rk King MD - Last Filed: 08/23/22 16:37> GI Inspection: Yes normal to inspection <Rk King MD - Last Filed: 08/23/22 16:37> Palpation (GI): Soft to palpation, nontender and No hepatosplenomegaly present <Rk King MD - Last Filed: 08/23/22 16:37> Auscultation: normal bowel sounds <Rk King MD - Last Filed: 08/23/22 16:37> General: Yes no CVA tenderness <Rk King MD - Last Filed: 08/23/22 16:37> Back/Spine/Pelvis Back: no CVA tenderness <Rk King MD - Last Filed: 08/23/22 16:37> Skin General skin exam: no rashes or lesions noted <Rk King MD - Last Filed: 08/23/22 16:37> Neuro General: oriented to person and patient oriented x3 <Rk King MD - Last Filed: 08/23/22 16:37> Cranial nerves: Yes CN's II-XII intact bilaterally <Rk King MD - Last Filed: 08/23/22 16:37> Motor exam (neuro): 5/5 motor strength present throughout <Rk King MD - Last Filed: 08/23/22 16:37> Sensory Exam: No Sensory deficit (Neuro) <Rk King MD - Last Filed: 08/23/22 16:37> Extrem General: Yes normal to inspection <Rk King MD - Last Filed: 08/23/22 16:37> Psych Appearance: grossly normal <Rk King MD - Last Filed: 08/23/22 16:37> Course Course Course Narrative: This is a rapid medical exam. deferred additional HPI, ROS, PE to primary provider. 37 yo female w/ history of gastric sleeve here with right flank/abdominal pain since Saturday, decreased PO intake, pain with eating. No nausea.vomiting/diarrhea or urinary symptoms. Will check labs, UA, COVID screen. <Nicole Garcia NP - Last Filed: 08/23/22 11:20> Reevaluation(s) Reevaluation #1: Patient with flank pain most likely renal colic will obtain CT and sign out to Dr López <Rk King MD - Last Filed: 08/23/22 16:37> Time: 16:36 <Rk King MD - Last Filed: 08/23/22 16:37> Medical Decision Making Medical Decision Making MDM Narrative: CT scan of the abdomen pelvis did not show any acute evidence of obstruction, abscess, perforation. No signs of kidney stone. No intra-abdominal pathology. Patient's urine showed no signs of infection. Her electrolyte was good. No need for admission at this time. Will have patient follow-up on an outpatient basis. Her electrolytes are good. Her hemoglobin was reviewed. No evidence of biliary issues on CT scan. Do not think patient will need an ultrasound at this time. Will discharge patient home. <Nikia López MD - Last Filed: 08/23/22 17:00> Differential Diagnoses: Differential diagnosis (Obstruction, abscess, perforation) <Nikia López MD - Last Filed: 08/23/22 17:00> Consideration of admission/observation: Consideration of Admission/Observation (Yes no need for admission) <Nikia López MD - Last Filed: 08/23/22 17:00> Lab Attestation: I reviewed the patient's lab results. (Patient's electrolytes CBC and urine all negative.) <Nikia López MD - Last Filed: 08/23/22 17:00> Tests considered but not performed: Tests Considered But Not Performed <Nikia López MD - Last Filed: 08/23/22 17:00> Prescription medication was considered but ultimately not given after discussion with patient/family. (e.g., pain medication, antiviral, antibiotic): Prescriptions considered but not given <Nikia López MD - Last Filed: 08/23/22 17:00> Chronic conditions affecting care (e.g., diabetes, HTN): Chronic conditions affecting care (e.g., diabetes, HTN) <Nikia López MD - Last Filed: 08/23/22 17:00> Medications Administered Discontinued Medications Generic Name Dose Route Start Last Admin Trade Name Freq PRN Reason Stop Dose Admin Acetaminophen 975 mg 08/23/22 16:33 08/23/22 16:38 Acetaminophen 325 Mg Tablet PO 08/23/22 16:34 975 mg ONCE ONE Administration <Nicole Garcia NP - Last Filed: 08/23/22 11:20> Medications Administered Discontinued Medications Generic Name Dose Route Start Last Admin Trade Name Freq PRN Reason Stop Dose Admin Acetaminophen 975 mg 08/23/22 16:33 08/23/22 16:38 Acetaminophen 325 Mg Tablet PO 08/23/22 16:34 975 mg ONCE ONE Administration <Rk King MD - Last Filed: 08/23/22 16:37> Medications Administered Discontinued Medications Generic Name Dose Route Start Last Admin Trade Name Freq PRN Reason Stop Dose Admin Acetaminophen 975 mg 08/23/22 16:33 08/23/22 16:38 Acetaminophen 325 Mg Tablet PO 08/23/22 16:34 975 mg ONCE ONE Administration <Nikia López MD - Last Filed: 08/23/22 17:00> Discharge Plan Discharge Clinical Impression: Acute flank pain <Nicole Garcia NP - Last Filed: 08/23/22 11:20> Patient Disposition: Home, Self-Care <Nicole Garcia NP - Last Filed: 08/23/22 11:20> Instructions: Flank Pain (ED) <Nicole Garcia NP - Last Filed: 08/23/22 11:20> Prescriptions: No Action cholecalciferol (vitamin D3) 25 mcg (1,000 unit) capsule 25 mcg PO DAILY Qty: 30 5RF cyanocobalamin (vitamin B-12) 100 mcg tablet 100 mcg PO DAILY Qty: 30 5RF labetalol 100 mg tablet 100 mg PO BID Vitamin Plus Low Iron 27 mg iron- 1 mg tablet 1 tab PO DAILY ferrous sulfate 325 mg (65 mg iron) tablet 325 mg PO Q OTHER DAY omeprazole 40 mg capsule,delayed release(DR/EC) 40 mg PO DAILY 60 Days Qty: 60 2RF famotidine 20 mg tablet 20 mg PO BID 30 Days Qty: 60 3RF <Nicole Garcia NP - Last Filed: 08/23/22 11:20> Referrals: Physician,Unknown J [Primary Care Provider] - 08/27/22 <Nicole Garcia NP - Last Filed: 08/23/22 11:20>
[2022-08-23 12:15] LABS: MANUAL DIFF FLAG NO
[2022-08-23 12:18] LABS: Basophils Percent Auto 0.3 % (0-2); Eosinophils Absolute Auto 0.3 X10*3/uL (0.0-0.4); Eosinophils Percent Auto 4.2 % (0-4); Hematocrit 39.6 % (37.0-47.0); Imm Gran Abs Auto 0.02 X10*3/uL (0.00-0.03); Imm Gran Pct Auto 0.3 % (0.0-0.4); Lymphocytes Absolute Auto 1.2 X10*3/uL (1.2-4.9); Lymphocytes Percent Auto 19.2 % (20-40); Mean Corpuscular HGB Conc 32.8 g/dl (31.0-35.0); Mean Corpuscular Hemoglobin 30.4 pg (27.0-33.0); Mean Corpuscular Volume 92.5 fL (80.0-98.0); Mean Platelet Volume 10.6 fL (9.4-12.3); Monocytes Absolute Auto 0.4 X10*3/uL (0.1-1.2); Monocytes Percent Auto 5.8 % (2-11); Neutrophils Absolute Auto 4.3 x10*3/uL (2.0-8.3); Neutrophils Percent Auto 70.2 % (45-73); Platelet Count 194 X10*3/uL (160-400); Red Blood Count 4.28 X10*6/uL (4.20-5.50); Red Cell Distribution Width 13.4 % (11.0-16.0); White Blood Count 6.2 X10*3/uL (4.8-10.8)
[2022-08-23 12:19] LABS: Appearance Urine Clear; Color Urine Yellow; Glucose Urine UA Negative (Negative); Leukocyte Esterase Urine Small (1+) (Negative); Nitrite Urine Negative (Negative); PH 6.5 (5.0-9.0); UMIC TRIGGER UACC YES; Urine Blood Large (3+) (Negative); Urine Ketones Trace mg/dL (Negative); Urine Protein Trace mg/dL (Neg-Trace)
[2022-08-23 12:24] LABS: UPreg QC Valid YES; Urine Pregnancy NEGATIVE (NEGATIVE)
[2022-08-23 12:32] LABS: COVID-19 Test Negative (Negative); IDNOW Serial# 9DB6401D
[2022-08-23 12:36] LABS: Bacteria Urine None Seen (None Seen); Hyaline Casts Urine 0-2 /LPF (0-2); RBC Urine >20 /HPF (0-2); Squamous Epithelial Cell Urine 0-2 /HPF (0-2); UACC Culture Trigger YES; WBC Urine 0-5 /HPF (0-5)
[2022-08-23 12:38] LABS: Alanine Aminotransferase 25 U/L (0-31); Albumin Level 4.6 g/dL (3.5-5.0); Alkaline Phosphatase 86 U/L (39-117); Anion Gap 12 (12-20); Aspartate Amino Transferase 22 U/L (5-31); Bilirubin Direct 0.2 mg/dL (0.0-0.5); Bilirubin Total 0.6 mg/dL (0.0-1.0); Blood Urea Nitrogen 7 mg/dL (9-16); Calcium 9.5 mg/dL (8.4-10.2); Carbon Dioxide 25 mmol/L (22-29); Chloride 107 mmol/L (96-108); Estimated Glomerular Filt Rate > 60; Glucose Random 97 mg/dL (60-115); Lipase 29 U/L (8-78); Potassium 4.5 mmol/L (3.3-5.1); Sodium 139 mmol/L (135-145)
[2022-08-23 16:00] VITALS: BP 170/92; PULSE 77; RESP 18; TEMP 36.7; O2SAT 100
--- NOTE | 2022-08-23 16:31 | PC.NURSE ---
patient a&ox3, vss, pt c/o rt abd and back pain, -05/26, provider notified, call ballard within reach, will continue to monitor
[2022-08-23] MEDS: Acetaminophen 325 MG TABLET 975 MG PO (16:38)
--- NOTE | 2022-08-23 16:42 | PC.NURSE ---
patient medicated per order
== END 2022-08-23 17:39 | disposition home or self-care (01) ==
PROVIDERS: Nurse Practitioner Family; Emergency Provider Emergency Medicine Emergency Medical Services
DX: R42 Dizziness and giddiness (principal); R10.9 Unspecified abdominal pain; Z79.899 Other long term (current) drug therapy; Z20.822 Contact with and (suspected) exposure to COVID-19
CPT/HCPCS: 74176; 80048; 80076; 81001; 81025; 83690; 85025; 87086; 87635; 99284

== ENCOUNTER 2023-01-14 12:49 | Day surgery (SDC) | payer OTHER, SELFPAY ==
[2023-01-14 07:23] VITALS: BMI 37.4
[2023-01-14 13:13] VITALS: BP 123/76; PULSE 100; RESP 20; TEMP 36.1; O2SAT 98
[2023-01-14 13:27] LABS: UPreg QC Valid YES; Urine Pregnancy NEGATIVE (NEGATIVE)
[2023-01-14] MEDS: Lactated Ringers 1,000 ML 100 ML IVCONT (13:33)
--- NOTE | 2023-01-14 14:53 | HO.ANESPROP2 ---
HPI - Anesthesia Eval Consult details Narrative: 37 F for EGD GERD,Asthma . Anxious pre-op PMF Active Problems Active Problems: All Active Problems (Updated 08/24/22 @ 00:00 by Background Allison) Obesity (Acute) GERD (gastroesophageal reflux disease) (Acute) History of sleeve gastrectomy (Acute) Past Medical History Medical History (Updated 08/24/22 @ 00:00 by Background Allison) Asthma Gastritis Hypertension Functional capacity: independent ambulation Family History Family History Father HTN (hypertension) Mother HTN (hypertension) Paternal Grandfather CAD (coronary artery disease) Myocardial infarction Maternal Grandfather Stroke Family history of problems with anesthesia: No Surgical History Surgical History History of colonoscopy History of esophagogastroduodenoscopy (EGD) History of sleeve gastrectomy History of Problems with Anesthesia: No Social History Social History Alcohol intake: former Patient Tobacco Use Status: Never used Tobacco Are you DNR?: No Advance Directives: No Advance Directives Information Provided: Yes Nutrition Risks: No Nutritional Risk Meds Allergies Allergy/AdvReac Type Severity Reaction Status Date / Time diphenhydramine Allergy Hives Verified 01/11/23 12:36 [From Benadryl] Active Medications: Current Medications Albuterol Sulfate (Albuterol Sulfate (0.083%) 2.5 Mg/3 Ml Vial.Neb) 2.5 mg INHALE ONCE PRN PRN Reason: Shortness of Breath/Wheezing Lactated Ringer's (Lr) 1,000 mls @ 100 mls/hr IVCONT .Q10H EBTTY Last Admin: 01/14/23 13:33 Dose: 100 mls/hr Home Medications Medication Instructions Recorded Confirmed Last Taken Type ferrous sulfate 325 mg (65 mg 325 mg PO Q OTHER DAY 05/03/22 06/28/22 01/10/23 History iron) tablet vitamin with calcium 1 tab PO DAILY 05/03/22 06/28/22 01/10/23 History no.72-iron 27 mg-folic acid 1 mg tablet ( Vitamins Plus Low Iron) hydrochlorothiazide 25 mg tablet 25 mg PO DAILY 01/14/23 01/14/23 01/14/23 History Exam Exam Date and Time: January 14, 2023 1453 Height,Weight and Vital Signs: Height 5 ft 4 in Weight 98.883 kg Last Vital Signs Temp 97 F 01/14/23 13:13 Pulse 100 01/14/23 13:13 Resp 20 01/14/23 13:13 BP 123/76 01/14/23 13:13 Pulse Ox 98 01/14/23 13:13 O2 Del Method Room Air 01/14/23 13:13 Pertinent Lab Results Pertinent Lab Results: Laboratory Tests 01/14/23 13:00 Urine Test NEGATIVE Airway Mallampati Class: III TM Dist: >3cm Neck ROM: Full Loose/Missing/Broken Teeth: Yes (chipped upper front ) Assessment and Plan Assessment Anesthesia Assessment: Anesthesia Plan Discussed and Chart Reviewed Final Anesthetic Review Family History of Problems with Anesthesia: No History of Problems with Anesthesia: No NPO: Yes ASA Class: III Final Preanesthetic Review: Meds/Allgs Chart Reviewed, Consent Obtained/Reviewed and Anes Risks/Benef Reviewed Patient Risk: Intermediate Procedure Risk: Intermediate Anesthetic Plan Anesthetic Plan: MAC: Disposition: Standard PACU
--- NOTE | 2023-01-14 15:25 | MHC.SHP ---
Pre-Procedural Eval Section A Date of Service: 01/14/23 The patient is an INPATIENT: No The History & Physical has been completed within 30 days and I have reviewed it.: No Section B Chief Complaint: GERD,Acquired absence of stomach [part of] Details of Present Illness: GERD, status post sleeve gastrectomy Relevant Family History (Specify if Yes): No Present Medications: see Short Stay Collaborative assessment Medical History: Significant History (Asthma Gastritis Hypertension) History of Previous Operations: Relevant previous surgery/procedure and date(s) (History of colonoscopy History of esophagogastroduodenoscopy (EGD) History of sleeve gastrectomy) Allergies: Allergies Allergy/AdvReac Type Severity Reaction Status Date / Time diphenhydramine Allergy Hives Verified 01/11/23 12:36 [From Benadryl] Review of Systems Sugical H&P ROS: Negative: Constitution, Cardiovascular, Respiratory and Gastrointestinal Exam Surgical H&P Exam: Normal: Heart, Normal: Lungs, Normal: Extremities and Normal: Abdomen Plan Diagnosis/Plan: Unchanged I have reviewed the history and physical and performed a pertinent physical examination on my patient. No changes have occurred unless specified. Time Spent With Patient Time: Total time managing care of this patient today ____ minutes.
--- NOTE | 2023-01-14 15:31 | W.PM.OPN ---
Operative Note Operative Note Date of Service: 01/14/23 Narrative: FLEXIBLE TRANSORAL UPPER GASTROINTESTINAL ENDOSCOPY WITH BIOPSIES Pre-op diagnosis: GERD, status post gastric sleeve Post-op diagnosis: GERD, hiatal hernia, Gastric sleeve anatomy Endoscopist:? Ptarick Chandra MD Anesthesia:?MAC Consent: Indications for the procedure and potential complications of bleeding, perforation, reaction to medications and missed diagnosis were discussed with the patient and informed consent was obtained. Instrument: Olympus GIF H 190 mid size upper endoscope Monitoring: Vital signs and clinical assessment, continuous EKG monitoring, Pulse oximetry, Carbon Dioxide monitoring and blood pressure monitoring were done throughout the procedure. Procedure: The patient was placed in the left lateral decubitis position and pre-procedure medications were administered and a bite block was placed. The endoscope was inserted into the mouth and advanced under direct vision to the third part of duodenum. A careful inspection was made as the upper endoscope was withdrawn including a retroflexed examination of the proximal stomach; Findings and interventions are described below. Findings: Larynx: Normal Esophagus: GE junction at 34 cms, small hiatal hernia 34 to 36 cms. No esophagitis or Bass's. Biopsies obtained from proximal esophagus to check for EOE and from distal esophagus to check for esophagitis. Stomach: Gastric sleeve anatomy with normal appearing gastric pouch. Minimal gastric antral erythema. Biopsies were obtained. Grade 3 flap valve on retroflexed examination of the cardia. Duodenum: Normal bulb and descending duodenum. Biopsies were obtained from 3rd part of duodenum to check for celiac sprue Intervention: Biopsies as noted above Impression and Post Procedure Diagnosis: Endoscopy Findings: ESOPHAGUS: GE junction at 34 cms, small hiatal hernia 34 to 36 cms. No esophagitis or Bass's. Biopsies obtained from proximal esophagus to check for EOE and from distal esophagus to check for esophagitis. STOMACH: Minimal antral gastritis Plan: Await pathology results Patient has an appointment on 03/04/23 in the GI [facility] with Patrick Chandra M.D. Above findings were reviewed with the patient and GERD handout was given in the discharge area Patient advised to increase Omeprazole to 20 mg twice daily to manage persistent GERD symptoms.
[2023-01-14 16:11] VITALS: BP 147/81; PULSE 127; TEMP 36.5
[2023-01-14 16:26] VITALS: BP 156/94; PULSE 112; RESP 20; TEMP 36.8; O2SAT 96
== END 2023-01-14 16:49 | disposition home or self-care (01) ==
PROVIDERS: Nurse Practitioner; Visit Provider Internal Medicine Gastroenterology
PROC: 0DJ08ZZ Inspection of Upper Intestinal Tract, Via Natural or Artificial Opening Endoscopic (ICD-10-PCS; CPT 43235; principal; 2023-01-14 14:30)
DX: K21.9 Gastro-esophageal reflux disease without esophagitis (principal); K29.70 Gastritis, unspecified, without bleeding; K44.9 Diaphragmatic hernia without obstruction or gangrene; I10 Essential (primary) hypertension; J45.909 Unspecified asthma, uncomplicated; Z79.899 Other long term (current) drug therapy; Z98.84 Bariatric surgery status
CPT/HCPCS: 43239; 81025; 88305; 88342; J2250; J3010

== ENCOUNTER → 2023-03-04 07:43 | Outpatient (BNVA) | payer OTHER, SELFPAY | PROVIDERS: Visit Provider Internal Medicine Gastroenterology ==

== ENCOUNTER 2023-03-29 08:18 | Outpatient (REF) | payer OTHER, SELFPAY ==
--- NOTE | ~2023-03-29 | US_ITS ---
EXAMINATION: US ABDOMEN COMPLETE CLINICAL INFORMATION: Right upper quadrant pain. Patient with fatty liver and right upper quadrant pain. Rule out gallstones or biliary source of abdominal pain. COMPARISON: CT scan of 08/23/2022 and abdominal ultrasound of 10/24/2019. TECHNIQUE: Real-time imaging of the abdominal viscera. FINDINGS: PANCREAS: Normal. No abnormal mass or peripancreatic inflammatory change. ABDOMINAL AORTA: The proximal, mid, and distal segments are normal in caliber. INFERIOR VENA CAVA: Visualized portions are normal. LIVER: There is increased echogenicity consistent with fatty infiltration. The liver is normal in size. The liver contour is normal. No focal hepatic lesion. There is no intrahepatic biliary duct dilatation seen. GALLBLADDER: Normal. The gallbladder is physiologically distended without evidence of stones, sludge, polyps, wall thickening or pericholecystic fluid. COMMON BILE DUCT: Normal in caliber measuring 0.4 cm in diameter. RIGHT KIDNEY: Normal. No hydronephrosis. No renal calculi or focal parenchymal lesions. The kidney measures 10.7 cm in maximum dimension. Previously noted calculi from CT scan of 08/23/2022 are not identified on this ultrasound study. LEFT KIDNEY: There is an echogenic focus present within the interpolar region consistent with small calculus measuring 2 mm in diameter. No hydronephrosis. No focal parenchymal lesions. The kidney measures 11.9 cm in maximum dimension. SPLEEN: Normal. The spleen measures 10.5 cm in maximum dimension. FREE FLUID: None. US/US abdomen complete IMPRESSION: 1. Findings consistent with fatty infiltration of the liver. No intrahepatic bile duct dilatation or cholelithiasis identified. Common bile duct is not enlarged. 2. 2 mm nonobstructing left renal calculus with previously noted right renal calculi on CT scan not being seen on ultrasound.
== END 2023-03-29 08:19 | disposition home or self-care (01) ==
LOC: HO.HMGCX 08:18
PROVIDERS: PCP Internal Medicine; Visit Provider Internal Medicine Gastroenterology
DX: R10.11 Right upper quadrant pain (principal)
CPT/HCPCS: 76700

== ENCOUNTER → 2023-04-05 08:48 | Outpatient (BNVA) | payer OTHER, SELFPAY | PROVIDERS: Visit Provider Physician Assistant ==

== ENCOUNTER 2023-04-29 15:44 | Outpatient (AMB) | payer OTHER, SELFPAY ==
--- NOTE | 2023-04-29 15:49 | MHC.OFFVISWM ---
Intake VS Expanded 04/29/23 15:55 Height 5 ft 4 in Weight 220 lb BMI 37.8 Blood Pressure Location Rt brachial Blood Pressure Position Sitting Pulse 75 Pulse Source Pulse Oximeter Temp 98.2 F Temperature Source Temporal Artery Scan Pulse Oximetry 99 Oxygen Delivery Method Room Air Body Fat 95.4 Body Fat Percentage 43.4 Free Fat Mass 124.4 Muscle Mass 118.2 Visceral Mass 11.0 Water Mass 89.0 BMR 1,748 Intake Visit Reasons: RE-EST SWL BMI 37.4 Allergies diphenhydramine [From Benadryl] Allergy (Verified 04/29/23 15:52) Hives Medication List - Last Reconciled 04/29/23 by Zena aDs PA-C clonidine HCl 0.2 mg PO BID famotidine 20 mg PO BID 90 days hydrochlorothiazide 25 mg PO DAILY labetalol 200 mg PO TID norethindrone (contraceptive) 0.35 mg PO DAILY omeprazole TAKE 1 CAPSULE (40 MG) BY MOUTH TWICE DAILY FOR 60 DAYS sucralfate (Carafate) 10 mL PO .prn valsartan 80 mg PO DAILY HPI HPI Comments History of Present Illness Details 38yo woman here to re-establish (thi rd time) SW care for revison of LSG . LSG and HH repai r done at [facility] in 2015 by tariq Bang rt scanned in [facility]. Pre op weight w as 220 lbs and low est was 170 lbs. I n December of 2019 es tablished care aga in with Dr Jazzy mott and had visit s for 2 months , lo st 3 lbs and and E GD with normal res ults March [address] Reeves. Had a vagina l delivery Jun 05 and severe refl ux symptoms have r eturned. Sees Dr Leandro verudzco for . No UG I done in recent y ears. Re - establi shed care with us again in Jun 2022 at 220 lbs - came for 1 visit only s shane had in family. PCP has been changing HTN over last 6 month s - on new meds. H as cardiology appt in May - br ing records to us. Had ULS - 03/29 - fatty liver UGI - 08/07 - small to moderate HH with reflux upt to thor acic esophagus and slow clearing. Meal plan: wakes a t 6am and bed at 8 pm 8am- Atkins sh melody mixed with 8 0 z of coffee. 12pm -betsy wrap with tu rkey and cheese. l ettuce and tomato. water 5pm - 1 cup vegetable and 6 o z chicken or sausa ge. water may snac k once in mid afte rnoon on walnuts or cheese sticks a nd apple slices E TRAV - increased he r ETOh for a few m onths and states n one x 2 months. Tobacoo - none M arijuana - none Ex ercise - strolls i n park with her so n 4-5 d/ week. No gym membership or eqipment at home. ? ? [facility] Medical History (Updated 03/14/23 @ 11:14 by Patrick Chandra MD) Asthma Gastritis Hypertension Surgical History History of colonoscopy History of esophagogastroduodenoscopy (EGD) History of sleeve gastrectomy Family History Father HTN (hypertension) Mother HTN (hypertension) Paternal Grandfather CAD (coronary artery disease) Myocardial infarction Maternal Grandfather Stroke Social History Alcohol intake: former Patient Tobacco Use Status: Never used Tobacco Physical Exam Vital Signs: Last Vital Signs Temp 98.2 F 04/29/23 15:55 Pulse 75 04/29/23 15:55 Pulse Ox 99 04/29/23 15:55 Oxygen Delivery Method Room Air 04/29/23 15:55 BMI result Body Mass Index 37.8 Assessment & Plan Assessment & Plan (1) Obesity: Code(s): E66.9 - Obesity, unspecified Plan: This is a 38 yo woman s/p LSG at [facility] with severe reflux and GERD symptms wants revision and HH repair. Blood work, CXR, ECG, Abd ULS and UGI have been ordered. She is being scheduled for RD and BH initial consultations. She will start SWL classes and watch at 3 classes before her next appt with Lavonne. H pylori neg Jul 2022. 1. Adequate sleep of 7-8 hours per night discussed 2. Healthy meal plan All meals/MR's need to take 20 minutes to complete, no carbonated beverages 8 am - 30 gram shake - finish shake coffee - with 2-3 oz of protein shake 12 pm - 30 gram shake 3 pm- bar or yogurt 6 pm- dinner of 4 oz lean protein, 4 oz vegetable - over 20 minutes No drinking while eating Exercise - Cardio 4 d week - LS 2 mile videos The importance of avoiding and breast feeding for at least 18 months after bariatric surgery was discussed in the information session and was reinforced today. Pt will purchase body composition analyzer (recommended list given to patient) and weight herself weekly. Next appt with me in 3 weeks. Text me with any questions and weekly weights. Patient is morbidly obese and is not considered stable at this time.?I spent a total of 60 minutes reviewing/updating records, examining the patient and counseling the patient on weight management as detailed above. (2) History of sleeve gastrectomy: Comment: LSG with hiatal hernia repair 10/27/2015 Code(s): Z90.3 - Acquired absence of stomach [part of] (3) GERD (gastroesophageal reflux disease): Code(s): K21.9 - Gastro-esophageal reflux disease without esophagitis Orders: Orders Vitamin B12 and Folate Today E66.9 - Obesity, unspecified, K21.9 - Gastro-esophageal reflux disease without esophagitis, R10.11 - Right upper quadrant pain Comprehensive Met. Panel Today E66.9 - Obesity, unspecified, K21.9 - Gastro-esophageal reflux disease without esophagitis, R10.11 - Right upper quadrant pain C Reactive Protein Today E66.9 - Obesity, unspecified, K21.9 - Gastro-esophageal reflux disease without esophagitis, R10.11 - Right upper quadrant pain Ferritin Today E66.9 - Obesity, unspecified, K21.9 - Gastro-esophageal reflux disease without esophagitis, R10.11 - Right upper quadrant pain Hemoglobin A1c Today E66.9 - Obesity, unspecified, K21.9 - Gastro-esophageal reflux disease without esophagitis, R10.11 - Right upper quadrant pain Insulin Today E66.9 - Obesity, unspecified, K21.9 - Gastro-esophageal reflux disease without esophagitis, R10.11 - Right upper quadrant pain IRON PROFILE Today E66.9 - Obesity, unspecified, K21.9 - Gastro-esophageal reflux disease without esophagitis, R10.11 - Right upper quadrant pain Lipid Panel Today E66.9 - Obesity, unspecified, K21.9 - Gastro-esophageal reflux disease without esophagitis, R10.11 - Right upper quadrant pain PTHI Today E66.9 - Obesity, unspecified, K21.9 - Gastro-esophageal reflux disease without esophagitis, R10.11 - Right upper quadrant pain TSH reflex Free T4 Today E66.9 - Obesity, unspecified, K21.9 - Gastro-esophageal reflux disease without esophagitis, R10.11 - Right upper quadrant pain Vitamin A Today E66.9 - Obesity, unspecified, K21.9 - Gastro-esophageal reflux disease without esophagitis, R10.11 - Right upper quadrant pain Vitamin B1 Today E66.9 - Obesity, unspecified, K21.9 - Gastro-esophageal reflux disease without esophagitis, R10.11 - Right upper quadrant pain Vitamin D 25-OH Total Today E66.9 - Obesity, unspecified, K21.9 - Gastro-esophageal reflux disease without esophagitis, R10.11 - Right upper quadrant pain Zinc Today E66.9 - Obesity, unspecified, K21.9 - Gastro-esophageal reflux disease without esophagitis, R10.11 - Right upper quadrant pain Complete Blood Count Auto Diff Today E66.9 - Obesity, unspecified, K21.9 - Gastro-esophageal reflux disease without esophagitis, R10.11 - Right upper quadrant pain ECG 12 lead EKG Today K21.9 - Gastro-esophageal reflux disease without esophagitis, Z90.3 - Acquired absence of stomach [part of] XR chest 2V Today K21.9 - Gastro-esophageal reflux disease without esophagitis, Z90.3 - Acquired absence of stomach [part of] Coding Level of Care Code Est Pt Level 5 (73850) Diagnoses Obesity E66.9 History of sleeve gastrectomy Z90.3 GERD (gastroesophageal reflux disease) K21.9
[2023-04-29 15:55] VITALS: PULSE 75; TEMP 36.8; O2SAT 99; BMI 37.8
== END 2023-04-29 16:30 | disposition home or self-care (01) ==
PROVIDERS: Visit Provider Physician Assistant
DX: E66.9 Obesity, unspecified (principal); Z68.37 Body mass index [BMI] 37.0-37.9, adult; Z90.3 Acquired absence of stomach [part of]; Z98.84 Bariatric surgery status; K21.9 Gastro-esophageal reflux disease without esophagitis
CPT/HCPCS: 99215

== ENCOUNTER → 2023-04-29 15:44 | Outpatient (BNVA) | payer OTHER, SELFPAY | PROVIDERS: Visit Provider Physician Assistant | DX: E66.9 Obesity, unspecified (principal); K21.9 Gastro-esophageal reflux disease without esophagitis; R10.11 Right upper quadrant pain; Z68.37 Body mass index [BMI] 37.0-37.9, adult; Z90.3 Acquired absence of stomach [part of] | CPT/HCPCS: 99212 ==

== ENCOUNTER 2023-04-30 09:03 | Outpatient (REF) | payer OTHER, SELFPAY ==
--- NOTE | ~2023-04-30 | XR_ITS ---
EXAMINATION: XR CHEST 2 VIEWS CLINICAL INFORMATION: Gastroesophageal reflux disease, without esophagitis. COMPARISON: Chest radiographs dated 07/20/2020. TECHNIQUE: Frontal and lateral views of the chest were obtained. FINDINGS: The heart, great vessels, pulmonary vasculature and mediastinum are normal. The lungs show no focal infiltrate, effusion or pneumothorax. There is mild elevation of the right hemidiaphragm. There is no acute osseous abnormality. XR/XR chest 2V IMPRESSION: No active cardiopulmonary disease.
[2023-04-30 09:41] LABS: MANUAL DIFF FLAG NO
--- NOTE | 2023-04-30 09:48 | ECG_ITS ---
Test Reason : gerd Blood Pressure : / mmHG Vent. Rate : 064 BPM Atrial Rate : 064 BPM P-R Int : 146 ms QRS Dur : 136 ms QT Int : 462 ms P-R-T Axes : 028 073 005 degrees QTc Int : 476 ms Normal sinus rhythm Right bundle branch block Abnormal ECG When compared with ECG of 01-DEC-2016 00:39, Right bundle branch block is now Present Referred By: Zena Das Electronically Signed By:LUZ RICHARD
[2023-04-30 10:17] LABS: Basophils Percent Auto 0.5 % (0-2); Eosinophils Absolute Auto 0.2 X10*3/uL (0.0-0.4); Eosinophils Percent Auto 5.3 % (0-4); Hematocrit 38.1 % (37.0-47.0); Hemoglobin 12.5 g/dl (12.0-16.0); Imm Gran Abs Auto 0.01 X10*3/uL (0.00-0.03); Imm Gran Pct Auto 0.2 % (0.0-0.4); Lymphocytes Absolute Auto 1.3 X10*3/uL (1.2-4.9); Lymphocytes Percent Auto 32.1 % (20-40); Mean Corpuscular HGB Conc 32.8 g/dl (31.0-35.0); Mean Corpuscular Hemoglobin 29.9 pg (27.0-33.0); Mean Corpuscular Volume 91.1 fL (80.0-98.0); Monocytes Absolute Auto 0.3 X10*3/uL (0.1-1.2); Monocytes Percent Auto 8.2 % (2-11); Neutrophils Absolute Auto 2.2 x10*3/uL (2.0-8.3); Neutrophils Percent Auto 53.7 % (45-73); Platelet Count 213 X10*3/uL (160-400); Red Blood Count 4.18 X10*6/uL (4.20-5.50); Red Cell Distribution Width 13.8 % (11.0-16.0); White Blood Count 4.2 X10*3/uL (4.8-10.8)
[2023-04-30 10:42] LABS: Estimated Average Glucose 91 mg/dL; Hemoglobin A1c % 4.8 %
[2023-04-30 11:07] LABS: Alanine Aminotransferase 17 U/L (0-31); Albumin Level 4.4 g/dL (3.5-5.0); Alkaline Phosphatase 69 U/L (39-117); Anion Gap 11 (12-20); Aspartate Amino Transferase 16 U/L (5-31); Bilirubin Total 0.8 mg/dL (0.0-1.0); Blood Urea Nitrogen 13 mg/dL (9-16); C Reactive Protein 0.94 mg/dL (< or = 0.50); Calcium 9.4 mg/dL (8.4-10.2); Carbon Dioxide 25 mmol/L (22-29); Chloride 106 mmol/L (96-108); Cholesterol 184 mg/dL; Estimated Glomerular Filt Rate > 60; Glucose Random 88 mg/dL (60-115); HDL Cholesterol 60 mg/dL; Iron 218 mcg/dL (30-160); LDL Cholesterol Calculated 108 mg/dl; Percent Iron Saturation 67 % (15-50); Potassium 4.4 mmol/L (3.3-5.1); Sodium 138 mmol/L (135-145); Total Iron Binding Capacity 323 mcg/dL (228-428); Total Protein 7.2 g/dL (6.5-8.0); Triglycerides 83 mg/dL; Unsaturated Iron Binding 105 ug/dL
[2023-04-30 11:30] LABS: Folate 13.4 ng/mL (> or = 4.0); Vitamin B12 295 pg/mL (200-900)
[2023-04-30 11:36] LABS: Ferritin 31 ng/mL (10-122); TSH reflex Free T4 1.36 uIU/mL (0.32-4.0); Vitamin D 25-OH Total 30.4 ng/mL (>30)
[2023-04-30 11:55] LABS: Insulin 8 uU/mL (2-29)
[2023-05-02 09:14] LABS: PTHI 66 pg/mL (16-77)
[2023-05-03 00:48] LABS: Zinc 80 mcg/dL (60-130)
[2023-05-04 20:34] LABS: Vitamin A 48 mcg/dL (38-98)
[2023-05-05 12:53] LABS: Vitamin B1 9 nmol/L (8-30)
== END 2023-04-30 09:04 | disposition home or self-care (01) ==
LOC: HO.LAB 09:03
PROVIDERS: PCP Internal Medicine; Visit Provider Physician Assistant
DX: R10.11 Right upper quadrant pain (principal); K21.9 Gastro-esophageal reflux disease without esophagitis; E66.9 Obesity, unspecified; Z90.3 Acquired absence of stomach [part of]
CPT/HCPCS: 36415; 71046; 80053; 80061; 82306; 82607; 82728; 82746; 83036; 83525; 83540; 83970; 84425; 84443; 84590; 84630; 85025; 86140; 93005

== ENCOUNTER 2023-05-13 15:50 | Outpatient (AMB) | payer OTHER, SELFPAY ==
--- NOTE | 2023-05-13 15:42 | A.OFFVIS_ITS ---
Intake VS Expanded 05/13/23 16:00 Height 5 ft 4 in Weight 216 lb BMI 37.1 Intake Visit Reasons: VIDEO Initial Nutrition SWL Allergies diphenhydramine [From Benadryl] Allergy (Verified 04/29/23 15:52) Karmen ROD Nutrition Presentation Details [employer] weight 220# Current weight 216# Reason for consult elevated BMI Diet Assmnt Details Has the Atkins 30g shakes - showed me her shake today Tried the bars and doesn't like them so has been replacing bar with a shake Dinner sticks to protein and veg Asked about eating celery and we talked about how nutritionally this is fine but its also reinforcing a negative habit she is trying to break. We also talked about identifying true hunger vs emotional hunger Enjoys walking outside with her son. I did have a big problem with alcohol Prior to program, would drink 4 vodka cocktails with juice - hasn't drank alcohol in 2months now . I took it in baby steps Dietary counseling reduction Meal frequency regular: lunch (later lunch - mall food very large portions ) and snacks (late night - pasta, bread, mostly savory foods, fried foods ) Lifestyle Food frequency Water: daily, Soda: never, Juice: daily and Coffee: daily Diagnosis Nutrition problem #1 overweight/obesity As related to (etiology) #1 excess energy intake and physical inactivity As evidenced by (sign/symptom) #1 high BMI Monitoring/Goals Nutrition problem monitoring total energy intake, level of knowledge/skill, total PRO intake, total CHO intake and weight Outcome progress progressing Learning/Education Readiness to learn excellent Stages of change action Educational materials provided Yes Most Recent Diabetes Results: Cholesterol 184 mg/dL 04/30/23 HDL Cholesterol 60 mg/dL 04/30/23 Triglycerides 83 mg/dL 04/30/23 Creatinine 0.74 mg/dL (0.5-1.4) 04/30/23 Blood Urea Nitrogen 13 mg/dL (9-16) 04/30/23 Sodium 138 mmol/L (135-145) 04/30/23 Potassium 4.4 mmol/L (3.3-5.1) 04/30/23 Chloride 106 mmol/L (96-108) 04/30/23 Carbon Dioxide 25 mmol/L (22-29) 04/30/23 Calcium 9.4 mg/dL (8.4-10.2) 04/30/23 AST 16 U/L (5-31) 04/30/23 ALT 17 U/L (0-31) 04/30/23 Total Protein 7.2 g/dL (6.5-8.0) 04/30/23 Albumin 4.4 g/dL (3.5-5.0) 04/30/23 PFSH Medical History (Updated 05/01/23 @ 12:41 by Zena Das PA-C) Asthma Gastritis Hypertension Surgical History History of colonoscopy History of esophagogastroduodenoscopy (EGD) History of sleeve gastrectomy Family History Father HTN (hypertension) Mother HTN (hypertension) Paternal Grandfather CAD (coronary artery disease) Myocardial infarction Maternal Grandfather Stroke Social History Alcohol intake: former Patient Tobacco Use Status: Never used Tobacco Assessment & Plan Assessment & Plan (1) Obesity (BMI 30-39.9): Code(s): E66.9 - Obesity, unspecified Patient Instructions: In the past has done well with making small changes overtime (giving up alcohol). We talked about breaking down her goals into small steps and working toward her goals that way. she will finish her online classes and f/u in 4 weeks Telehealth Telehealth Location of provider rendering services: practice address Location of patient: address on file Patient Identification confirmed using: Name, : Yes Telehealth method: video Patient verbally consented to treatment: Yes Patient verbally consented to billing insurance company: Yes Patient informed of any privacy concerns related to visit: Yes Minutes spent on Phone/Video with Pt.: 30 Coding Level of Care Code Nutr Indiv Intake (33889) Diagnoses Obesity (BMI 30-39.9) E66.9 Time Spent (min) 30
--- OUTSIDE RECORDS SUMMARY | 2023-05-13 15:51 | XMS_ITS | Continuity of Care Document ---
Author Name Unknown Organization [facility] Address [address] [place] [id number]- Care Team Providers Care Wood Experimental Mechanic Name Role Phone Anamaria Wilson MD Primary Care Physician Encounter [facility] Date(s): 11/25/20 - 01/19/[facility] [address] [place] [id number] Attending Physician: Slava Caceres MD Admitting Physician: Nicki SCHMITZ, Slava Referring Physician: Greg SCHMITZ, Marty Johnson Allergies, Adverse Reactions, Alerts Substance Reaction Severity Status diphenhydrAMINE Active Medications Cetirizine 0 Refills, Maintenance, 11/25/20 8:11:00 EST, Partial fill upon patient request if the prescriptionis for a schedule II opioid drug. Start Date: 11/25/20 Status: Ordered Famotidine 0 Refills, Maintenance, 11/25/20 8:11:00 EST, Partial fill upon patient request if the prescriptionis for a schedule II opioid drug. Start Date: 11/25/20 Status: Ordered Hydrochlorothiazide By Mouth, Daily, 0 Refills, Maintenance, 03/18/20 21:48:00 EDT Start Date: 03/18/20 Status: Ordered labetalol 100 mg oral tablet 1 tablet = 100 mg, By Mouth, 2 times a day, # 180 tablet, 0 Refills, Maintenance, 11/25/20 8:10:00 EST, Tablet, Partial fill upon patient request if the prescription is for a schedule II opioid drug. Start Date: 11/25/20 Status: Ordered Lisinopril By Mouth, Daily, 0 Refills, Maintenance, 03/18/20 21:47:00 EDT Start Date: 03/18/20 Status: Ordered vitamins vitamins, 0 Refills, Maintenance, 11/25/20 8:10:00 EST Start Date: 11/25/20 Status: Ordered Problem List Condition Effective Dates Status Health Status Inform ant Asthma(Confirmed) Active BMI 38.0-38.9,adult(Confirmed) Active Genital HSV(Confirmed) Active Heartburn(Confirmed) Active Status post laparoscopic sle katerina gastrectomy(Confirmed) Active Chronic hypertension(Confirmed) Active Social History Social History Type Response Smoking Status Never (less than 100 in lifetime) entered on: 10/31/20 Sex
--- OUTSIDE RECORDS SUMMARY | 2023-05-13 15:51 | XMS_ITS | Continuity of Care Document ---
Author Name Unknown Organization [facility] Address [address] [place] [phone]- Care Team Providers Care Priming Machine Operator Name Role Phone Anamaria Wilson MD Primary Care Physician [place] [facility] 12/20/20 - 01/19/[facility] [address] [place] [id number] Attending Physician: Hugo Tran Admitting Physician: AdmHugo clancy Referring Physician: Admtr, Ar8 Allergies, Adverse Reactions, Alerts Substance Reaction Severity [...]
--- OUTSIDE RECORDS SUMMARY | 2023-05-13 15:51 | XMS_ITS | Continuity of Care Document ---
Author Name Unknown Organization [facility] Klaus Harper [email or web address] [facility] Address [address] [place] [address]- Care Team Providers Care Pulmonary Physician Name Role Phone Anamaria Wilson MD Primary Care Physician [id number] Date(s): 12/16/20 - 01/15/21 [facility] Gold [place]manny [email or web address] [facility] [address] [place] [address]- Allergies, Adverse Reactions, Alerts Substance Reaction Severity [...]
--- OUTSIDE RECORDS SUMMARY | 2023-05-13 15:51 | XMS_ITS | Continuity of Care Document ---
Author Name Unknown Organization [facility] Address [address] [place] [address]- Care Team Providers Care Inspector Balance Wheel Motion Name Role Phone Anamaria Wilson MD Primary Care Physician Encounter [facility] Date(s): 03/18/20 - 03/19/[address] [address]- [facility] Encounter Diagnosis Medial collateral ligament sprain of knee(Final) - 03/19/20 Discharge Disposition: A-D/C Home Attending Physician: Tracy Ruff DO Admitting Physician: Tracy Ruff DO Referring Physician: Not on Staff, Referring MD Allergies, Adverse Reactions, Alerts Substance Reaction Severity Status diphenhydrAMINE Active Medications Hydrochlorothiazide By Mouth, Daily, 0 Refills, Maintenance, 03/18/20 21:48:00 EDT Start Date: 03/18/20 Status: Ordered Lisinopril By Mouth, Daily, 0 Refills, Maintenance, 03/18/20 21:47:00 EDT Start Date: 03/18/20 Status: Ordered Results Radiology Reports * Exam Date Time Procedure Performing Provider Status 03/19/20 1:49 AM Knee 3 Views Left Alistair Kaplan; Au th (Verified) Notes: (Knee 3 Views Left) Reason For Exam: Pain RESULT: Knee 3 Views Left Left knee 3 views dated March 19, 2020. No prior studies are available. HISTORY: Pain. FINDINGS: This examination shows no evidence of fracture or dislocation. Joint spaces are well preserved. No joint effusion is noted. IMPRESSION: Negative examination. Examination [address]26[address]. Thank you for allowing me to participate in the care of this patient. WSN: [id number] Ordering Physician: Joseph Parada Dictated By: Rk Valero MD Dictated Date/Time: 03/19/20 8:27 am Reviewed By: Rk Valero MD Signed By: Rk Valero MD Signed Date/Time: 03/19/20 8:27 am Transcribed By: EDUARDA Transcribed Date/Time: 03/19/20 8:27 am Vital Signs Most recent to oldest [Reference Range]: 1 2 3 Weight 96 kg (03/19/20 3:58 AM) 96 kg (03/19/20 2:36 AM) 96 kg (03/18/20 9:44 PM) Oxygen Saturation [94-100 %] 99 % (03/19/20 3:58 AM) 98 % (03/19/20 2:36 AM) 96 % (03/18/20 9:39 PM) Pulse Rate [55-90 bpm] 89 bpm (03/19/20 3:58 AM) 77 bpm (03/19/20 2:36 AM) 92 bpm *H* (03/18/20 9:39 PM) Blood Pressure [90-138/55-84 mm Hg] 145/86mm Hg *H* (03/19/20 3:58 AM) 139/82mm Hg *H* (03/19/20 2:36 AM) 142/97mm Hg *H* (03/18/20 9:39 PM) Respiratory Rate [16-30 br/min] 16 br/min (03/19/20 3:58 AM) 18 br/min (03/19/20 2:36 AM) 20 br/min (03/18/20 9:39 PM) Temperature [96.8-100.4 DegF] 97.8 DegF (03/19/20 3:58 AM) 98.3 DegF (03/18/20 9:39 PM) Mode of Delivery (Oxygen) Room air (03/19/20 3:58 AM) Room air (03/19/20 2:36 AM) Room air (03/18/20 9:39 PM) Blood pressure sites Arm, left (03/19/20 3:58 AM) Arm, left (03/19/20 2:36 AM) Arm, right (03/18/20 9:39 PM) Temperature Route Oral (03/19/20 3:58 AM) Oral (03/18/20 9:39 PM) Dry Weight 96 kg (03/19/20 3:58 AM) 96 kg (03/19/20 2:36 AM) 96 kg (03/18/20 9:44 PM) Weight Obtained Via Standing scale (03/18/20 9:39 PM) Dry Weight Obtained Via Standing scale (03/18/20 9:39 PM)
[2023-05-13 16:00] VITALS: BMI 37.1
== END 2023-05-13 16:03 | disposition home or self-care (01) ==
LOC: HO.HBS 15:50
PROVIDERS: PCP Internal Medicine; Visit Provider Dietitian, Registered
DX: E66.9 Obesity, unspecified (principal)

== ENCOUNTER → 2023-05-13 15:50 | Outpatient (BNVA) | payer OTHER, SELFPAY | PROVIDERS: PCP Internal Medicine; Visit Provider Dietitian, Registered | DX: E66.9 Obesity, unspecified (principal); K21.9 Gastro-esophageal reflux disease without esophagitis; R94.31 Abnormal electrocardiogram [ECG] [EKG]; Z68.37 Body mass index [BMI] 37.0-37.9, adult; Z90.3 Acquired absence of stomach [part of] | CPT/HCPCS: 97802 ==

== ENCOUNTER 2023-05-29 15:16 | Outpatient (AMB) | payer OTHER, SELFPAY ==
--- NOTE | 2023-05-29 14:27 | A.OFFVIS_ITS ---
Intake VS Expanded 05/29/23 15:33 Height 5 ft 4 in Weight 211 lb 12.8 oz BMI 36.4 BP 139/64 Blood Pressure Location Rt brachial Blood Pressure Position Sitting Pulse 73 Pulse Source Pulse Oximeter Temp 97.8 F Temperature Source Tympanic Pulse Oximetry 96 Oxygen Delivery Method Room Air Body Fat 88.4 Body Fat Percentage 41.8 Free Fat Mass 123.2 Muscle Mass 117.0 Visceral Mass 10.0 Water Mass 88.2 BMR 1,722 Intake Visit Reasons: (OV) F/U SWL Allergies diphenhydramine [From Benadryl] Allergy (Verified 04/29/23 15:52) Hives HPI HPI Comments History of Present Illness Details This is the patients second appt for revision of previous LSG. Starting weight was 220 lbs on 04/29/23. TBWL is 8.2 lbs or 3.7% TBWL. Meal plan: 6am - Atkins shake - 30 - 45 minutes coffee - with a little protien shake 12 pm -- Oikos yogurt or shake 3pm- celery often alone - or with 1 TBL PB 5-6 pm - chicken - measuring 1.5 cups, w ith vegetables -1 cup - still has severe reflux symptoms -wakes her at night -takes Tums and it helps. Exercise plan: LS 2 miles videos - 4d/ week, does fun walks with her son. Pre op work up completed as follows: SWL classes - 12/22 appts - rescheduled to 05/30 RD appts - follow up on 06/17 H pylori - negative Jul 2022 Labs - done CXR - normal ECG - RBBB, ECHO and stress tests ordered - 05/31/23, and cards appt on 06/11. ULS - 03/29 fatty liver UGI - 08/07 - small to moderate HH with reflux up to thoracic esophagus and slow clearing. GI appt being rescheduled due to Dr Chandra's schedule. [facility] Medical History (Updated 05/01/23 @ 12:41 by Zena Das PA-C) Gastritis Asthma Hypertension Surgical History History of colonoscopy History of esophagogastroduodenoscopy (EGD) History of sleeve gastrectomy Family History Father HTN (hypertension) Mother HTN (hypertension) Paternal Grandfather CAD (coronary artery disease) Myocardial infarction Maternal Grandfather Stroke Social History Alcohol intake: former Patient Tobacco Use Status: Never used Tobacco Assessment & Plan Assessment & Plan (1) History of sleeve gastrectomy: Comment: LSG with hiatal hernia repair 10/27/2015 Code(s): Z90.3 - Acquired absence of stomach [part of] Plan: Pt is doing well with 8+ lbs weight loss so far, but has not been having enough protein during the day and has been eating too much at dinner. This may be the reason that she still has such severe reflux. Meal plan changes: Must shave two - 30 gram shakes per day 1 meal of 4 oz lean protein (8 forks) and same amount of vegetables 1 bar or yogurt or celery with 2 TBL PB Continue same exercise plan until completes cardiac testing and consulation. Will finish SWL classes before 06/17, all appts reviewed with patient. Will have Dr Gupta review her data for revision once cards testing is completed. Next appt with me in 3 weeks. Patient is morbidly obese and is not considered stable at this time. I spent 30 minutes in total with patient reviewing/updating records, examining the patient and counseling the patient on weight management as detailed above. (2) Obesity: Code(s): E66.9 - Obesity, unspecified (3) Abnormal ECG: Code(s): R94.31 - Abnormal electrocardiogram [ECG] [EKG] Coding Level of Care Code Est Pt Level 4 (65860) Diagnoses History of sleeve gastrectomy Z90.3 Obesity E66.9 Abnormal ECG R94.31
[2023-05-29 15:33] VITALS: BP 139/64; PULSE 73; TEMP 36.6; O2SAT 96; BMI 36.4
== END 2023-05-29 16:13 | disposition home or self-care (01) ==
PROVIDERS: PCP Internal Medicine; Visit Provider Physician Assistant
DX: E66.9 Obesity, unspecified (principal); Z68.36 Body mass index [BMI] 36.0-36.9, adult; Z90.3 Acquired absence of stomach [part of]; Z98.84 Bariatric surgery status; R94.31 Abnormal electrocardiogram [ECG] [EKG]
CPT/HCPCS: 99214

== ENCOUNTER → 2023-05-29 15:16 | Outpatient (BNVA) | payer OTHER, SELFPAY | PROVIDERS: Visit Provider Physician Assistant | DX: K21.9 Gastro-esophageal reflux disease without esophagitis (principal); E66.9 Obesity, unspecified; R94.31 Abnormal electrocardiogram [ECG] [EKG]; Z68.36 Body mass index [BMI] 36.0-36.9, adult; Z90.3 Acquired absence of stomach [part of] | CPT/HCPCS: 99212 ==

== ENCOUNTER → 2023-05-31 07:45 | Outpatient (REF) | payer OTHER, SELFPAY ==
--- NOTE | ~2023-05-31 | NM_ITS ---
EXERCISE MYOCARDIAL PERFUSION STUDY INDICATION: Abnormal EKG, preoperative evaluation TECHNIQUE: The patient was brought in for an exercise perfusion study on 05/31/2023. Patient performed exercise as per Kings protocol and was injected 35 mCi of sestamibi once target heart rate was achieved. Images were obtained using the SPECT gamma camera interlaced with the gating device. Images were obtained in supine position. Resting perfusion study was performed on 06/05/2023. Patient was administered 35 mCi of sestamibi intravenously at rest. Images were then obtained in supine position. Images were processed with the software and compared side to side in short axis, horizontal long axis and vertical long axis views. Total DLP 115mGy-cm. FINDINGS: Raw images were reviewed. The stress perfusion study showed no significant perfusion abnormality. Both uncorrected as well as CT attenuation corrected images were reviewed. The gated study shows normal LV systolic function with calculated LVEF of 71%. LV cavity is normal in size. The gated study shows normal wall thickening and contraction of segments. Resting study shows no significant perfusion abnormality. Gating at rest reveals normal wall motion with ejection fraction at 74%. The findings are consistent with no clear reversible or fixed perfusion abnormality. IA/IA cardiolite stress test IMPRESSION: 1. Myocardial perfusion imaging study shows normal myocardial perfusion. No evidence of any ischemia or infarction. 2. Gated LVEF is 71% during stress and 74% during rest. 3. Transient ischemic dilatation not present. EKG component of the test reported separately.
--- NOTE | 2023-05-31 07:48 | CA_ITS ---
Transthoracic Echocardiogram Patient (Last, First, Middle): Priyanka Leslie, Gender: Female Date of : 1985 Age: 38 Procedure Date: 05/31/2023 Procedure Type: Transthoracic Echocardiogram Location: OP Height: 162.56 cm Weight: 95.26 kg BSA: 2.00 m2 Heart Rate: 77 bpm BP: 140 / 85 mmHg Process Development Associate: NORM/LIZ Referring MD: Zena Das PA-C Symptoms: R94.31 - Abnormal electrocardiogram [ECG] [EKG] Study Quality: Fair ECG Rhythm: Sinus Conclusions: - The left ventricular systolic function is normal. The calculated ejection fraction is 57% by biplane method. - There is moderately increased left ventricular wall thickness. - No obvious valvular pathology seen on this study. Findings Left Ventricle Normal left ventricular cavity size. There is moderately increased left ventricular wall thickness. The left ventricular systolic function is normal. The calculated ejection fraction is 57% by biplane method. There is no evidence of regional wall motion abnormalities. Diastolic function is normal for age. Right Ventricle Normal right ventricular cavity size and systolic function. Atria Both atria are normal in size. Aortic Valve There is a normal trileaflet aortic valve. There is no aortic valve stenosis. There is no aortic valve regurgitation. Mitral Valve The mitral valve appears normal. There is no mitral valve regurgitation. There is no mitral valve stenosis. Pulmonic Valve The pulmonic valve is likely normal. Tricuspid Valve Normal tricuspid valve structure. There is trace tricuspid valve regurgitation. There is no evidence of pulmonary hypertension. Great Vessels The asc aorta is normal in size. Venous The inferior vena cava is normal in size and collapses greater than 50% with inspiration. Pericardium/Pleural There is no evidence of pericardial effusion. Prior Study Comparison No prior study available for comparison. Recommendations, Care & Conclusions No obvious valvular pathology seen on this study. Measurements 2D Linear Measurements IVSd: 1.30 0.6-0.9/0.6-1.0 cm LVIDd: 5.20 3.9-5.3/4.2-5.9 cm LVIDd Index: 2.60 2.4-3.2/2.2-3.1 cm/m2 LVIDs: 2.60 2.0-3.6 cm LVPWd: 1.20 0.7-1.1 cm LA Diam: 4.10 2.7-3.8/3.0-4.0 cm LAIDs Index: 2.05 1.5-2.3 cm/m2 LV Mass: 328.56 67-162/88-224 g LV Mass Index: 164.28 43-95/49-115 g/m2 LVOT Diam: 2.20 3.0+(-)1.3 cm 2D Systolic Function EF 4C: 55.30 >55% EF 2C: 58.90 >55% EF BiP: 57.20 >55% Mitral Valve MV Pk E: 0.88 MV PK A: 0.87 MV Decel Time: 185.00 E/A: 1.00 E'Lateral: 9.90 E'Medial: 8.81 E/E' Med: 10.00 E/E' Lat: 8.90 PHT: 54.00 MVA PHT: 4.07 Decel Stanly: 4.77 Aortic Valve AoV Pk Antwon: 1.66 AoV Mn Antwon: 1.20 AoV VTI: 0.37 AoV Pk Grad: 11.00 Aov Mn Grad: 7.00 GENEVIEVE Cont.VTI: 2.87 LVOT LVOT Pk Antwon: 1.19 LVOT Mn Antwon: 0.83 LVOT VTI: 0.28 LVOT Pk Grad: 6.00 LVOT Mn Grad: 3.00 LVOT Diam: 2.20 LVOT Area: 3.80 Diastolic Function MV Pk E: 0.88 MV Pk A: 0.87 E/A: 1.00 E'Medial: 8.81 E/E' Med: 10.00 E' Laterial: 9.90 E/E' Lat: 8.90 Right Ventricle TAPSE (mm): 29.50 TVS' Antwon: 12.20 Tricuspid Valve TR Pk Antwon: 2.18 TR Pk Grad: 19.00 RA Press: 3.00 RVSP: 22.00 Great Vessels Aorta Sinus of Valsalva: 3.10 2.0-3.5 cm Ao Asc: 3.20 2.1-3.4 cm Pulmonary Valve PV Pk Antwon: 1.07 Peak PV Grad: 5.00 Updated in Other Vendor System with Status of Final Alex Washington MD electronically signed on 06/01/2023 12:45:56 PM with status of Final
--- NOTE | 2023-05-31 07:48 | CA_ITS ---
Acquisition Time: 2023-05-31 09:06:58 Total Exercise Time: 00:07:31 Test Indications: Abnormal ECG Medications: CLONIDINE FAMOTIDINE HCTZ OMEPRAZOLE Protocol: JACOBY Max HR: 160 BPM 87% of Pred: 182 BPM Max BP: 152/086 mmHG Max Work Load: 9.3 METS Exercise stress test exercise 7 min 31 sec of Jacoby protocol achieving 86% and 9.3 METs, with mild SOB, no chest discomfort, without arrhythmias, with normotensive response to exercise, without EKG changes. Nuclear images pending. Test reviewed with Dr. Washington. Referred By: Zena Das Overread By: Zonia Guaman
== END ==
LOC: HO.CARD 07:45
PROVIDERS: PCP Internal Medicine; Visit Provider Physician Assistant
DX: R94.31 Abnormal electrocardiogram [ECG] [EKG] (principal); K21.9 Gastro-esophageal reflux disease without esophagitis; E66.9 Obesity, unspecified; Z90.3 Acquired absence of stomach [part of]
CPT/HCPCS: 78452; 93017; 93306; A9500

== ENCOUNTER → 2023-05-31 07:48 | Outpatient (BNV) | payer OTHER, SELFPAY | PROVIDERS: PCP Internal Medicine; Visit Provider Nurse Practitioner | DX: R94.31 Abnormal electrocardiogram [ECG] [EKG] (principal) | CPT/HCPCS: 78452; 93016; 93018; 93306 ==

== ENCOUNTER 2023-07-11 15:35 | Outpatient (AMB) | payer OTHER, SELFPAY ==
--- NOTE | 2023-07-11 15:08 | A.OFFWM_ITS ---
Intake Intake Visit Reasons: VIDEO BH Intake Allergies diphenhydramine [From Benadryl] Allergy (Verified 04/29/23 15:52) Hives [facility] Medical History (Updated 07/11/23 @ 15:47 by Jacquelyn Aguilar) Gastritis Asthma Hypertension Surgical History History of colonoscopy History of esophagogastroduodenoscopy (EGD) History of sleeve gastrectomy Family History Father HTN (hypertension) Mother HTN (hypertension) Paternal Grandfather CAD (coronary artery disease) Myocardial infarction Maternal Grandfather Stroke Social History Alcohol intake: former Patient Tobacco Use Status: Never used Tobacco Behavioral Health Assessment Weight Management Therapy Therapy Notes Details Pt is looking to have weight loss surgery revision to help improve her health and quality of life. She reported that she was drinking in the past everyday 1-2 drinks. She stated that she has not had a drink since this past summer. She reported being in therapy during the pandemic due to grief, stress, and drinking. She denied any other mental health treatment. Patient reported struggling with pain from hernia and also acid reflux, she had gastric sleeve in 2016. Presenting Concerns Referral Source provider Reason for referral weight loss surgery evaluation Precipitating Event obesity Living Situation At risk of losing current housing? No Satisfied with current living situation? Yes Comments Patient lives with her two years old. Food/Weight/Diet Expectations of change weight loss and maintenance History/Relationship with food Patient stated that she would eat to fill a void before. Her grandmother often showed her and her family love by cooking and feeding them. She reported eating fast food almost daily before starting the program. History/Relationship with weight Patient stated that she has always struggled with her weight. History/Relationship with dieting 220lbs previous to gastric sleeve and th en down to 170lb at her lowest. She is now back to 220lbs. WW, Gideon Protein Binge Eating0 Do you frequently eat large amounts of food in short periods of time, not feeling physically hungry? No Do you feel out of control when you eat a large amount of food in a short period of time? No Do you eat large amounts of food rapidly and typically alone? No Night Eating Do you wake up at least once during the night to eat? No If you wake up in the night, do you find that it is necessary to eat something in order to fall back asleep? No Do you have little or no appetite in the morning and feel very hungry in the evening, often overeating between dinner and when you go to bed? Yes Social History Family history and relationship Patietn Parental/Familial furniture mover driver obligations 2 year old son that she co parents with his father. Also her parents watch him while she work. Social support sister, parents Legal Involvement and History Current or historical involvement with the legal system? none known Education Preferred learning style Auditory, Verbal, Written, Learn by doing and Visual Currently enrolled in educational program? No Interested in further educational program? 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 No Meaningful activities going for walks and spending time with her son Financial Situation Describe current financial situation Occasional struggle Financial assistance? None Service Service? No Mental Health and Addiction Treatment Current/Past substance abuse? Yes Comments Patient reported some daily drinking habits in the past. Current/Past addictive behavior concerns? No Medical and Physical Health Summary Physical exam in the last year? Yes Pain Screening Current pain? No Pain in the last few months? No Medications Is the patient compliant with medications? Yes Does the patient have Scott Guardian in place? Not applicable Does the patient use complimentary health approaches? No Trauma/Abuse History History of trauma? Yes Other Past Questionnaires PHQ-9 Over the last 2 weeks, how often have you been bothered by any of the following problems? 1. Little interest or pleasure in doing things: several days 2. Feeling down, depressed, or hopeless: several days 3. Trouble falling or staying asleep, or sleeping too much: more than half the days 4. Feeling tired or having little energy: nearly every day 5. Poor appetite or overeating: several days 6. Feeling bad about yourself - or that you are a failure or have let yourself or your family down: not at all 7. Trouble concentrating on things, such as reading the newspaper or watching television: several days 8. Moving or speaking so slowly that other people could have noticed. Or the opposite - being so fidgety or restless that you have been moving around a lot more than usual: not at all 9. Thoughts that you would be better off or of hurting yourself in some way: not at all Total score: 9 Source: Developed by Drs. Russell Garcia, Meliza Bailey, Clint Damico and colleagues, with an educational ladarius from [employer]. Binge Eating Scale Group 1 A. I don't feel self-conscious about my wt. or body size when I'm with others. B. I feel concerned about how I look to others, but it normally does not make me fell disappointed with myself C. I do get self-conscious about my appearance and wt. which makes me feel disappointed in myself. D. I feel very self-conscious about my wt. and frequently I feel intense shame and disgust for myself. I try to avoid social contacts because of my self- consciousness. Response Group 1: C Group 2 A. I don't have any difficulty eating slowly in the proper manner. B. Although I seem to gobble down foods, I don't end up feeling stuffed because of eating to much. C. At times, I tend to eat quickly and then, I feel uncomfortably full afterwards. D. I have the habit of bolting down my food, without really chewing it. When this happens I usually feel uncomfortably stuffed because I've eaten to much. Response Group 2: C Group 3 A. I feel capable to control my eating urges when I want to. B. I feel like I have failed to control my eating more than the average person. C. I feel utterly helpless when it comes to feeling in control of my eating urges. D. Because I feel so helpless about controlling my eating I have become very desperate about trying to get control. Response Group 3: B Group 4 A. I don't have the habit of eating when I'm bored. B. I sometimes eat when I'm bored, but often I'm able to get busy and get my mind off food. C. I have a regular habit of eating when I'm bored, but occasionally, I can use some other activity to get my mind off eating. D. I have a strong habit of eating when I'm bored. Nothing seems to help me breath the habit. Response Group 4: B Group 5 A. I'm usually physically hungry when I eat something. B. Occasionally, I eat something on impulse even though I really am not hungry. C. I have the regular habit of eating foods, that I might not really enjoy, to satisfy a hungry feeling even though physically, I don't need the food. D. Although I'm not physically hungry, I get a hungry feeling in my mouth that only seems to be satisfied when I eat a food, like sandwich, that fills my mouth. Sometimes, when I eat the food to satisfy my mouth hunger, I then spit the food out so I won't gain weight. Response Group 5: B Group 6 A. I don't feel any guilt or self-hate after I overeat. B. After I overeat, occasionally I feel guilt or self-hate. C. Almost all the time I experience strong guilt or self-hate after I overeat. Response Group 6: B Group 7 A. I don't lose total control of my eating when dieting even after periods when I overeat. B. Sometimes when I eat a forbidden food on a diet, I feel like I blew it and eat even more. C. Frequently, I have the habit of saying to myself, I've blown it now, why not go all the way, when I overeat on a diet. When that happens I eat more. D. I have a regular habit of starting a strict diets for myself but I break the diets by going on an eating binge. My life seems to be either a feast or famine. Response Group 7: C Group 8 A. I rarely eat so much food that I feel uncomfortably stuffed afterwards. B. Usually about once a month, I each such a quantity of food, I end up feeling very stuffed. C. I have regular periods during the month when I eat large amounts of food, either at mealtime or at snacks. D. I eat so much food that I regularly feel quite uncomfortable after eating and sometimes a bit nauseous. Response Group 8: A Group 9 A. My level of calorie intake does not go up very high or go down very low on a regular basis. B. Sometimes after I overeat, I will try to reduce my caloric intake to almost nothing to compensate for the excess calories I've eaten. C. I have a regular habit of overeating during the night. It seems that my routine is not to be hungry in the morning but overeat in the evening. D. In my adult years, I have had week-long periods where I practically starve myself. This follows periods when I overeat. It seems I live a life of either feast or famine. Response Group 9: C Group 10 A. I usually am able to stop eating when I want to. I know when enough is enough. B. Every so often, I experience a compulsion to eat which I can't seem to control. C. Frequently, I experience strong urges to eat which I seem unable to control, but at other times I can control my eating urges. D. I feel incapable of controlling urges to eat. I have a fear of not being able to stop eating voluntarily. Response Group 10: A Group 11 A. I don't have any problem stopping eating when I feel full. B. I usually can stop eating when I feel full but occasionally overeat leaving me feeling uncomfortably stuffed. C. I have a problem stopping eating once I start and usually I feel uncomfortably stuffed after I eat a meal. D. Because I have a problem not being able to stop eating when I want, I sometimes have to induce vomiting to relieve my stuffed feeling. Response Group 11: A Group 12 A. I seem to eat just as much when I'm with others, Family social gatherings as when I'm by myself. B. Sometimes, when I'm with other persons, I don't eat as much as I want to eat because I'm self-conscious about my eating. C. Frequently, I eat only a small amount of food when others are present, because I'm very embarrassed about my eating. D. I feel so ashamed about overeating that I pick times to overeat when I know no one will see me. I feel like a closet eater. Response Group 12: A Group 13 A. I eat three meals a day with only an occasional between meal snack. B. I eat 3 meals a day, but I also normally snack between meals. C. When I am snacking heavily, I get in the habit of skipping regular meals. D. There are regular periods when I seem to be continually eating, with no planned meals. Response Group 13: A Group 14 A. I don't think much about trying to control unwanted eating urges. B. At least some of the time, I feel my thoughts are pre-occupied with trying to control my eating urges. C. I feel that frequently I spend much time thinking about how much I ate or about trying not to eat anymore. D. It seems to me that most of my waking hours are pre-occupied by thoughts about eating or not eating. I feel like I'm constantly struggling not to eat. Response Group 14: A Group 15 A. I don't think about food a great deal. B. I have strong craving for food but they last only for brief periods of time. C. I have days when I can't seem to think about anything else but food. D. Most of my days seem to be pre-occupied with thoughts about food. I feel like I live to eat. Response Group 15: B Group 16 A. I usually know whether or not I'm physically hungry. I take the right portion of food to satisfy me. B. Occasionally, I feel uncertain about knowing whether or not I'm physically hungry. A these times it's hard to know how much food I should take to satisfy me. C. Even though I might know how many calories I should eat, I don't have any idea what is a normal amount of food for me. Response Group 16: C Binge Eating Score: 15 Score less than 17 Minimal Risk Score between 18-26 Moderate Risk Score between 27-46 High Risk Assessment & Plan Assessment & Plan (1) Adjustment disorder, unspecified: Code(s): F43.20 - Adjustment disorder, unspecified (2) History of sleeve gastrectomy: Comment: LSG with hiatal hernia repair 10/27/2015 Code(s): Z90.3 - Acquired absence of stomach [part of] Plan Patient some reported emotional struggles in the past. She also recently stopped drinking, (having one or two drinks daily prior to that). She will be seen again in office. Telehealth Telehealth Location of provider rendering services: other Location of patient: other Patient Identification confirmed using: Name, : Yes Telehealth method: video Patient verbally consented to treatment: Yes Patient verbally consented to billing insurance company: Yes Patient informed of any privacy concerns related to visit: Yes Minutes spent on Phone/Video with Pt.: 40 Coding Level of Care Code Tele Psy Diag Eval ([id number]) Diagnoses Adjustment disorder, unspecified F43.20 History of sleeve gastrectomy Z90.3 Time Spent (min) 45
== END 2023-07-11 15:45 | disposition home or self-care (01) ==
LOC: HO.HBST 15:35
PROVIDERS: PCP Internal Medicine; Visit Provider Counselor Mental Health
DX: F43.20 Adjustment disorder, unspecified (principal); Z90.3 Acquired absence of stomach [part of]
CPT/HCPCS: 90791

== ENCOUNTER → 2023-07-11 15:35 | Outpatient (BNVA) | payer OTHER, SELFPAY | PROVIDERS: PCP Internal Medicine; Visit Provider Counselor Mental Health ==

== ENCOUNTER 2023-07-12 07:07 | Outpatient (AMB) | payer OTHER, SELFPAY ==
--- NOTE | 2023-07-12 07:08 | A.OFFVIS_ITS ---
Intake Intake Visit Reasons: follow up Intake Note: Patient telehealth follow up for GERD. Patient cc: loose BM every 3 days with some hemorrhoids, GERD is getting better with her diet from weight management. Denies any other GI issues for today. Clothes Designer Required: No Allergies diphenhydramine [From Benadryl] Allergy (Verified 07/12/23 07:11) Hives Medication List - Last Reconciled 07/12/23 by Patrick Chandra MD cyanocobalamin (vitamin B-12) 500 mcg PO DAILY 90 days famotidine 20 mg PO BID 90 days hydrochlorothiazide 25 mg PO DAILY labetalol 200 mg PO TID norethindrone (contraceptive) 0.35 mg PO DAILY omeprazole TAKE 1 CAPSULE (40 MG) BY MOUTH TWICE DAILY FOR 60 DAYS valsartan 80 mg PO DAILY HPI follow up HPI Details TELEMEDICINE VISIT FOR THIS 38 YEAR FEMALE FOR FOLLOW-UP EVALUATION OF GERD AND ABDOMINAL PAIN.? PATIENT IS STATUS POST GASTRIC SLEEVE SURGERY IN? 2015. ?CHRONIC ILLNESSES:??HYPERTENSION, ASTHMA, lap sleeve gastrectomy and hiatal hernia repair 10/27/2015? by Dr Pa at [facility] ?LABS IN [facility]:?08/05 REVIEWED.? MINIMALLY ELEVATED LFTS. NORMAL IGA WITH NORMAL SEROLOGIES FOR CELIAC SPRUE?IMAGING STUDIES: 07/2022 UGI SHOWED: [id number] size hiatal hernia with free gastroesophageal reflux to the level of the thoracic inlet which clears very slowly with hypomotility of the esophagus. 07/[address] SCAN SHOWED: LIVER, GALLBLADDER, AND BILIARY TREE: The liver is normal in size, shape, and attenuation. No focal hepatic lesion or biliary ductal dilatation is present. The gallbladder is unremarkable with no evidence of radiopaque gallstones, gallbladder wall thickening, or obvious pericholecystic inflammatory changes.? GASTROINTESTINAL TRACT: Status post gastric surgery with surgical suture line along the greater curvature the stomach. No acute change of the bowel. No bowel obstruction. No bowel wall thickening or edema. Moderate volume of stool in colon. No diverticula. The appendix is normal. 07/2020? UGI WITH SBFT SHOWED: There is significant gastroesophageal reflux. There is a small fixed hiatal hernia. No esophageal mass or stricture is appreciated. There are postsurgical changes from gastric sleeve procedure. The stomach and duodenum are otherwise normal appearing. No fold thickening, mass, ulcer or stricture is seen. Postsurgical changes from gastric procedure.? 11/05 ABDOMINAL ULTRASOUND SHOWED: ?There is diffuse hepatic echogenicity without any focal? lesions seen. ?The rest of the abdominal ultrasound is? unremarkable. ENDOSCOPIC STUDIES:? 01/14/23 EGD SHOWED: ESOPHAGUS:? GE junction at 34 cms, small hiatal hernia 34 to 36 cms. No esophagitis or Bass's.? Biopsies obtained from proximal esophagus to check for EOE and from distal esophagus to check for esophagitis. STOMACH: Minimal antral gastritis Plan: Patient advised to increase Omeprazole to 20 mg twice daily to manage persistent GERD symptoms. 03/2020 EGD WAS PERFORMED BY DR. PA : GE junction located at 34 cm from the incisors. No evidence of hiatal hernia. No evidence of significant gastritis of the gastric pouch. There was no evidence of stenosis or stricture. There was a slight amount of erythema at the gastric antrum. Biopsies showed mild chronic active gastritis and was negative for H pylori ?TODAY'S VISIT Heartburn is a lot better since she started the wt management program wt loss from 222 to 205 Taking Omeprazole and Famotidine and notes mild heartburn symptoms every 3-4 days - more at night. Has dinner around 6 pm and goes to bed at 9:30 or 10 am. Pt is being evaluated for gastric sleeve revision. Lab results reviewed - LFTs are normal now since pt lost wt. Pt complains of prolapsing hemorrhoids - prescribed hydrocortisone cream PAST VISITS: Clinic visit change to TV since pt has COVID. EGD results reviewed. Continues to have heartburn despite taking Omeprazole 40 mg twice daily and Famotidine twice a day. Has not been Accompanied by her 1 year old baby. Concerned about H Pylori since her Mom had HP a year She is scheduled for HP breath test on 07/25/22 in Bariatric Surgery clinic Has been having heartburn daily despite taking the Omeprazole - worse at night. Notes abd discomfort in her abdomen. Had to vomit last night. Trying to follow the diet plan given by Zena Das. Tries not to eat after 7 and goes to sleep at 9 or 10. Has to vomit sometimes since heartburn gets really bad. Noted pinkish fluid once. Denies dysphagia or chest pain. Notes abdominal discomfort and bloating. Has a BM 1-2 times a day (intermittent BMs with urgency). Feels she has been gaining weight. Does not eat much since she does not feel good. ?Just started using the portal? and had questions about her labs. ?Lab results were reviewed showing? minimally elevated LFTs. ?Ex boyfriend was a Heroin addict and may have?had Hepatitis C. ?Also had elevated iron levels, she was advised to? stop oral iron by Dr. Pa. ?Abd pain has improved with? Carafate. ?She is taking OTC ?Dithenhycramine prn for seasonal? allergies. ?Patient has an appointment later today with Dr. Pa to? discuss and scheduled an EGD. ?Did fine for the? 1st year after Gastric Sleeve surgery. ?Has been doing Ok and? medications have been helping. ?Noted increased pain associated with? stress. ?Started taking Vitamin C ?Has been having epigastric? pain and sometimes radiates to the back. ?Pain is stabbing and 8-9/10? in intensity ?Pain comes randomly- has pain every other? day. ?Has been cutting back on coffee and spicy food - does not eat a? lot. ?Unclear why she is gaining weight. ?Does not eat since? she does not feel good and notes post prandial fullness and makes her self throw? up so the discomfort go away ?Throws up if she eats too?much. ?Has been taking Omerpazole for years - notes burning if she? forgets to take it. ?Increased stress at work since she works with [employer] ?Had an UGI last April -? normal per patient. ?No? trouble with BM ?Has hemorrhoids with rectal bleeding in the past and? none recently. ? Weighed 230 lbs before the surgery ? Decreased to 170 lbs a year post surgery. ? Weight gain back to? baseline ? Had EGD and colonoscopy several years. ? Has? snoring and having a hard time sleeping lately due to GI problems. ? Denies major cardiac or pulmonary problems ? Denies known FH of colon? polyps or colon cancer PFSH Medical History (Updated 07/12/23 @ 07:59 by Patrick Chandra MD) Gastritis Asthma Hypertension Surgical History History of colonoscopy History of esophagogastroduodenoscopy (EGD) History of sleeve gastrectomy Family History Father HTN (hypertension) Mother HTN (hypertension) Paternal Grandfather CAD (coronary artery disease) Myocardial infarction Maternal Grandfather Stroke Social History Alcohol intake: former Patient Tobacco Use Status: Never used Tobacco Review of Systems Const All systems reviewed & are unremarkable except as noted in HPI and below Assessment & Plan Assessment & Plan (1) History of sleeve gastrectomy: Comment: LSG with hiatal hernia repair 10/27/2015 Code(s): Z90.3 - Acquired absence of stomach [part of] (2) GERD (gastroesophageal reflux disease): Code(s): K21.9 - Gastro-esophageal reflux disease without esophagitis (3) RUQ abdominal pain: Code(s): R10.11 - Right upper quadrant pain (4) Hemorrhoids: Code(s): K64.9 - Unspecified hemorrhoids Plan 38 YF with HTN and asthma followed in GI for heartburn, intermittent episodes of? abdominal pain, early satiety, nausea and vomiting. Pt is status post lap sleeve?gastrectomy and hiatal hernia repair 10/27/[address] Pa at [facility]?and is complaining of weight gain over the past 2 years. Her symptoms may be?related to peptic ulcer disease, GERD, stricture or stenosis of Gastric Sleeve.? Her symptoms have improved with omeprazole and Carafate. Recent LFTs were?slightly elevated and abdominal ultrasound showed a fatty liver. Patient was? advised to start vitamin E 400 IU twice daily for fatty liver and work on weight? reduction. 07/2020 UGI showed significant gastroesophageal reflux and small fixed hiatal hernia.? Postsurgical changes from gastric procedure.? 07/2022 repeat UGI was performed in findings as noted above EGD was performed in findings as noted above. Pt was advised to take Famotidine 20 mg twice daily and take Omeprazole 40 mg - 30 min before dinner for control of nocturnal symptoms. 03/04/23 Pt advised to stop Famotidine and start liquid carafate twice daily. Pt was advised to schedule a FU appt with bariatric surgery due to wt gain and persistent GERD symptoms to see if she would benefit from conversion to a gastric bypass. (message sent to Zena Das) 07/12/23 Heartburn is a lot better since she started the wt management program wt loss from 222 to 205 Taking Omeprazole and Famotidine and notes mild heartburn symptoms every 3-4 days - more at night. Pt is being evaluated for gastric sleeve revision. Pt complains of prolapsing hemorrhoids - prescribed hydrocortisone cream Advised to call back if no relief for referral to surgery. ? Fu in 6 months COMPLICATIONS OF? SLEEVE GASTRECTOMY (FROM uptodate): Stricture or stenosis of the SG A? stricture, angulation, or corkscrew configuration of the sleeve can result in? nausea, heartburn, vomiting, and chest pain or abdominal pain due to changes in? the lower esophageal sphincter pressure (image 30 and picture 5) [33-36]. This? may occur soon after surgery or can appear weeks to months after the? operation. The most common reasons for the development of narrowing or? stenosis are over- sewing the staple line and using a bougie that is too small. A? stricture may also occur adjacent to a leak. The gastroesophageal junction and? the incisura angularis are the two most common areas where stenosis occurs, and? this can be diagnosed by a UGI series, which will show kinking, tortuosity, or a? long thinning or lack of progression of contrast. Management of stenosis? primarily consists of endoscopic dilation. If the area of stenosis is too long,? surgical intervention may be necessary with conversion to a gastric bypass,? gastric stricturoplasty, or resection with gastrogastrostomy. Dilated SG A? dilated sleeve may lead to failure of weight loss or weight regain. This can? best be assessed on limited UGI series (image 31) [37]. A dilated sleeve can be? corrected with a repeat gastric sleeve to reduce the gastric sleeve volume? [38]. Dumbbell SG A dumbbell sleeve is a wide, dilated fundus with a? relatively narrow midstomach but without complete obstruction. This can cause? nausea and vomiting after sleeve gastrectomy and can be identified on limited? UGI This may require conversion to a gastric bypass,? or the fundus may need to be re-sleeved. It is crucial to ensure that there is? not a stricture at the angularis prior to proceeding with a re-sleeve of the fundus Medications: New hydrocortisone 2.5% [address] BID-QID 2 weeks PRN 30 grams 1RF hemorrhoids K64.9 - Unspecified hemorrhoids Telehealth Telehealth Location of provider rendering services: practice address Location of patient: address on file Patient Identification confirmed using: Name, : Yes Telehealth method: voice only Patient verbally consented to treatment: Yes Patient verbally consented to billing insurance company: Yes Patient informed of any privacy concerns related to visit: Yes Minutes spent on Phone/Video with Pt.: 15 Coding Level of Care Code Tele Est Pt Level 3 (25421) Diagnoses History of sleeve gastrectomy Z90.3 GERD (gastroesophageal reflux disease) K21.9 RUQ abdominal pain R10.11 Hemorrhoids K64.9
== END 2023-07-12 08:25 | disposition home or self-care (01) ==
LOC: HO.HGI 07:07
PROVIDERS: PCP Internal Medicine; Visit Provider Internal Medicine Gastroenterology
DX: Z90.3 Acquired absence of stomach [part of] (principal); K21.9 Gastro-esophageal reflux disease without esophagitis; R10.11 Right upper quadrant pain; K64.9 Unspecified hemorrhoids
CPT/HCPCS: 99213

== ENCOUNTER → 2023-07-12 07:07 | Outpatient (BNVA) | payer OTHER, SELFPAY | PROVIDERS: PCP Internal Medicine; Visit Provider Internal Medicine Gastroenterology ==

== ENCOUNTER → 2023-07-16 15:13 | Outpatient (BNVA) | payer OTHER, SELFPAY | PROVIDERS: PCP Internal Medicine; Visit Provider Dietitian, Registered | DX: E66.9 Obesity, unspecified (principal) | CPT/HCPCS: 97803 ==

== ENCOUNTER 2023-07-17 15:30 | Outpatient (AMB) | payer OTHER, SELFPAY ==
--- NOTE | 2023-07-17 10:56 | MHC.OFFVISWM ---
Intake VS Expanded 07/17/23 15:32 Height 5 ft 4 in Weight 204 lb BMI 35.0 Intake Visit Reasons: VIDEO F/U SWL Allergies diphenhydramine [From Benadryl] Allergy (Verified 07/12/23 07:11) Hives Medication List - Last Reconciled 07/17/23 by Zena Das PA-C cyanocobalamin (vitamin B-12) 500 mcg PO DAILY 90 days famotidine 20 mg PO BID 90 days hydrochlorothiazide 25 mg PO DAILY hydrocortisone 2.5% 1 appl [place] BID-QID PRN 2 weeks labetalol 200 mg PO TID norethindrone (contraceptive) 0.35 mg PO DAILY omeprazole TAKE 1 CAPSULE (40 MG) BY MOUTH TWICE DAILY FOR 60 DAYS valsartan 80 mg PO DAILY HPI HPI Comments History of Present Illness Details SWL follow up for revision of previous LSG from 2015. TBWL is 16 lbs or 7.3%. Meal plan: 6:30 - shake, Atkins 8:30 coffee with remainder of shake 9:30 - yogurt 12 pm - shake 5-6 pm - dinner of 4 oz protien and vegetable Exercise plan: TBP videos 3d/week for 30 minutes. Now has a treadmill - will start 2d/ week - Pre op work up completed as follows: SWL classes - 04/23 appts - rescheduled to 07/11, follow up 08/14 RD appts - follow up on 07/16, needs next follow up H pylori - negative Jul 2022 Labs - done CXR - normal ECG - RBBB, ECHO and stress tests ordered - 05/31/23, and cards appt on 06/11. Cards testing ECHO Conclusions: - The left ventricular systolic function is normal. The calculated ejection fraction is 57% by biplane method. - There is moderately increased left ventricular wall thickness. - No obvious valvular pathology seen on this study. Nuclear stress test - normal Receved cardiology clearance from Dr Jorgito Ty - scanned in to chart on 07/02/23. ULS - 03/29 fatty liver UGI - 08/07 - small to moderate HH with reflux up to thoracic esophagus and slow clearing. Contraception -Progestin only pill - no need to stop galen-operatively. [facility] Medical History (Updated 07/12/23 @ 07:59 by Patrick Chandra MD) Gastritis Asthma Hypertension Surgical History History of colonoscopy History of esophagogastroduodenoscopy (EGD) History of sleeve gastrectomy Family History Father HTN (hypertension) Mother HTN (hypertension) Paternal Grandfather CAD (coronary artery disease) Myocardial infarction Maternal Grandfather Stroke Social History Alcohol intake: former Patient Tobacco Use Status: Never used Tobacco Assessment & Plan Assessment & Plan (1) Obesity: Code(s): E66.9 - Obesity, unspecified Plan: Great progress iwth 20 lb or 7.3% TBWL for revision of previous LSG. Only change to meal plan is to measure dinner portion oin 8 forks each of protein and vegetable Contienu TBP 3d// week and add Treadmill 2 d/week - speed 3.0 , incline 1-7 - 350 calories. Pre op wrok up done except for [facility] nd RD follow ups - this week. Will now have Dr Gupta review UGI. Next appt with me after . Patient is still morbidly obese and is not considered stable at this time. I spent 30 minutes in total speaking with the patient via video conference counseling , reviewing records and charting in patients chart. . (2) History of sleeve gastrectomy: Comment: LSG with hiatal hernia repair 10/27/2015 Code(s): Z90.3 - Acquired absence of stomach [part of] (3) GERD (gastroesophageal reflux disease): Code(s): K21.9 - Gastro-esophageal reflux disease without esophagitis Telehealth Telehealth Location of provider rendering services: practice address Location of patient: address on file Patient Identification confirmed using: Name, : Yes Telehealth method: video Patient verbally consented to treatment: Yes Patient verbally consented to billing insurance company: Yes Patient informed of any privacy concerns related to visit: Yes Coding Level of Care Code Tele Est Pt Level 4 (79707) Diagnoses Obesity E66.9 History of sleeve gastrectomy Z90.3 GERD (gastroesophageal reflux disease) K21.9
[2023-07-17 15:32] VITALS: BMI 35.0
== END 2023-07-17 16:00 | disposition home or self-care (01) ==
LOC: HO.HBS 15:56
PROVIDERS: PCP Internal Medicine; Visit Provider Physician Assistant
DX: E66.9 Obesity, unspecified (principal); Z90.3 Acquired absence of stomach [part of]; K21.9 Gastro-esophageal reflux disease without esophagitis
CPT/HCPCS: 99214

== ENCOUNTER → 2023-07-17 15:30 | Outpatient (BNVA) | payer OTHER, SELFPAY | PROVIDERS: PCP Internal Medicine; Visit Provider Physician Assistant ==

== ENCOUNTER 2023-07-25 12:35 | Day surgery (SDC) | payer OTHER, SELFPAY ==
--- NOTE | 2023-07-24 10:10 | HO.ANESPROP2 ---
Documented by User: Isa Mccabe NP 07/24/23 10:17 HPI - Anesthesia Eval Consult details Narrative: 38yo F for Upper Endoscopy s/p same 01/2023 with MAC s/p gastric sleeve 2015 [facility] Active Problems Active Problems: All Active Problems (Updated 02/27/23 @ 09:00 by Jacquelyn Sanches) Hemorrhoids (Acute) Adjustment disorder, unspecified (Acute) Abnormal ECG (Acute) RUQ abdominal pain (Acute) Obesity (Acute) GERD (gastroesophageal reflux disease) (Acute) History of sleeve gastrectomy (Acute) Past Medical History Medical History Gastritis Asthma Hypertension Family History Family History Father HTN (hypertension) Mother HTN (hypertension) Paternal Grandfather CAD (coronary artery disease) Myocardial infarction Maternal Grandfather Stroke Family history of problems with anesthesia: No Surgical History Surgical History History of esophagogastroduodenoscopy (EGD) History of colonoscopy History of sleeve gastrectomy History of Problems with Anesthesia: No Social History Social History Alcohol intake: former Patient Tobacco Use Status: Never used Tobacco Meds Allergies Allergy/AdvReac Type Severity Reaction Status Date / Time diphenhydramine Allergy Hives Verified 07/25/23 12:57 [From [facility]] Home Medications Medication Instructions Recorded Confirmed Last Taken Type hydrochlorothiazide 25 mg tablet 25 mg PO DAILY 01/14/23 07/25/23 07/25/23 History labetalol 200 mg tablet 200 mg PO TID 04/05/23 07/25/23 07/25/23 History norethindrone (contraceptive) 0.35 0.35 mg PO DAILY 04/05/23 07/17/23 Unknown History mg tablet valsartan 80 mg tablet 80 mg PO DAILY 04/05/23 07/25/23 07/25/23 History Exam Exam Date and Time: July 24, 2023 1010 Pertinent Lab Results Pertinent Lab Results: Laboratory Tests 04/30/23 09:36 WBC 4.2 L Hgb 12.5 Hct 38.1 Plt Count 213 Sodium 138 Potassium 4.4 Chloride 106 Carbon Dioxide 25 BUN 13 Creatinine 0.74 Narrative Narrative: EKG 2022 Vent. Rate : 064 BPM Atrial Rate : 064 BPM P-R Int : 146 ms QRS Dur : 136 ms QT Int : 462 ms P-R-T Axes : 028 073 005 degrees QTc Int : 476 ms Normal sinus rhythm Right bundle branch block Abnormal ECG When compared with ECG of 01-DEC-2016 00:39, Right bundle branch block is now Present ECHO 05/2023 Conclusions: - The left ventricular systolic function is normal. The calculated ejection fraction is 57% by biplane method. - There is moderately increased left ventricular wall thickness. - No obvious valvular pathology seen on this study. NM cardiolite stress test 05/2023 IMPRESSION: 1. Myocardial perfusion imaging study shows normal myocardial perfusion. No evidence of any ischemia or infarction. 2. Gated LVEF is 71% during stress and 74% during rest. 3. Transient ischemic dilatation not present. EKG component of the test reported separately. Assessment and Plan Assessment Anesthesia Assessment: Chart Reviewed Final Anesthetic Review Family History of Problems with Anesthesia: No History of Problems with Anesthesia: No Documented by User: Suzanna Krishnamurthy MD 07/25/23 13:50 HPI - Anesthesia Eval Consult details Narrative: 38yo F for Upper Endoscopy prior to revision of sleeve gastrectomy and hiatal hernia repair s/p same 01/2023 with MAC s/p gastric sleeve and hiatal hernia repair @ [facility] in 2016 [facility] Active Problems Active Problems: All Active Problems (Updated 07/25/23 @ 13:10 by Suzanna Krishnamurthy MD) Hemorrhoids (Acute) Adjustment disorder, unspecified (Acute) Abnormal ECG (Acute) RUQ abdominal pain (Acute) Obesity (Acute) GERD (gastroesophageal reflux disease) (Acute) History of sleeve gastrectomy (Acute) H/o ETOH use 1-2 drinks per day. Not since the Summer Denies MICHAEL Past Medical History Medical History Gastritis Asthma Hypertension Family History Family History Father HTN (hypertension) Mother HTN (hypertension) Paternal Grandfather CAD (coronary artery disease) Myocardial infarction Maternal Grandfather Stroke Surgical History Surgical History History of esophagogastroduodenoscopy (EGD) History of colonoscopy History of sleeve gastrectomy Social History Social History Alcohol intake: former Patient Tobacco Use Status: Never used Tobacco Meds Allergies Allergy/AdvReac Type Severity Reaction Status Date / Time diphenhydramine Allergy Hives Verified 07/25/23 12:57 [From [facility]] Home Medications Medication Instructions Recorded Confirmed Last Taken Type hydrochlorothiazide 25 mg tablet 25 mg PO DAILY 01/14/23 07/25/23 07/25/23 History labetalol 200 mg tablet 200 mg PO TID 04/05/23 07/25/23 07/25/23 History norethindrone (contraceptive) 0.35 0.35 mg PO DAILY 04/05/23 07/17/23 Unknown History mg tablet valsartan 80 mg tablet 80 mg PO DAILY 04/05/23 07/25/23 07/25/23 History Exam Height,Weight and Vital Signs: Height 5 ft 4 in Weight 92.533 kg Vital Signs Temp Pulse Resp BP Pulse Ox O2 Del Method 07/25/23 13:12 98.1 F 81 18 138/89 98 Room Air Pertinent Lab Results Pertinent Lab Results: Laboratory Tests 04/30/23 09:36 WBC 4.2 L Hgb 12.5 Hct 38.1 Plt Count 213 Sodium 138 Potassium 4.4 Chloride 106 Carbon Dioxide 25 BUN 13 Creatinine 0.74 Lab Results 07/25/23 Range/Units 13:00 Urine Test NEGATIVE (NEGATIVE) Airway Mallampati Class: II TM Dist: >3cm Neck ROM: Full Loose/Missing/Broken Teeth: Yes (Chipped tooth front. Missing tooth top right, bottom left. Denies loose teeth) Heart: RRR Lungs: CTAB Assessment and Plan Assessment Anesthesia Assessment: Anesthesia Plan Discussed Final Anesthetic Review NPO: Yes ASA Class: III Final Preanesthetic Review: No Changes in Pt Med Stat, Meds/Allgs Chart Reviewed, Consent Obtained/Reviewed and Anes Risks/Benef Reviewed Patient Risk: Intermediate Procedure Risk: Low Assessment/Block/Sedation in SS: Assess/Block/Sedation-SS Anesthetic Plan Anesthetic Plan: MAC: Disposition: Standard PACU
[2023-07-25] MEDS: Lactated Ringers 1,000 ML 80 ML IVCONT (13:02)
[2023-07-25 13:10] LABS: Urine Pregnancy NEGATIVE (NEGATIVE)
[2023-07-25 13:11] VITALS: BMI 35.0
[2023-07-25 13:11] LABS: UPreg QC Valid YES
[2023-07-25 13:12] VITALS: BP 138/89; PULSE 81; RESP 18; TEMP 36.7; O2SAT 98
--- NOTE | 2023-07-25 13:30 | PM.OP ---
Brief Operative Note Date of Service: 07/25/23 Pre-op diagnosis: GERD and diaphragmatic hernia, s/p sleeve gastrectomy Post-op diagnosis: same (same and esophagitis, redundant proximal fundus, gastritis) Procedure: PROCEDURE DATE: 07/25/2023 PREOPERATIVE DIAGNOSIS: GERD, s/p sleeve gastrectomy POSTOPERATIVE DIAGNOSIS: ?Same as above. 1) small hiatal hernia, 2) distal gastritis PROCEDURE: [id number] with biopsies Surgeon: ?Sergio Jaquez M.D.. Ph.D. Cleaner Assistant: None ? Anesthesia: IV sedation Estimated blood loss: ?Minimal FINDINGS AND PROCEDURE: ? OPERATIVE INDICATIONS: ?The patient is a 38 year old female known to me who underwent a laparoscopic sleeve gastrectomy and diaphragmatic hernia repair by Dr. Snowden.. The patient had inadequate weight loss so far, is experiencing GERD and recent UGI and CT of the abdomen are suggestive for a recurrent moderate size diaphragmatic hernia. The patient was doing very well but has recently been complaining of GERD. Based on this information I recommended an upper endoscopy to evaluate the patient's symptoms. Risks and complications of the surgery were discussed with the patient in advance particularly the possibility of perforation or bleeding that may require surgical intervention. The patient understood the risks and was in agreement with the plan. ? PROCEDURE: After informed consent was obtained by the patient, the patient was ?transferred to the Operating Room and was placed in the supine position.? After successful induction of IV sedation, a mouth block was inserted and the patient was placed in the left lateral decubitus position. An upper endoscopy was performed next, the oropharynx and proximal esophagus appeared within the normal limits. There was a 4cm hiatal hernia. The z-line was irregular with very friable mucosa and presence of retained food. Grade III esophagitis was present. There was some narrowing of the stomach where it herniates into the chest.. Two biopsies were obtained from the distal esophagus 2-3 cm proximal to the GE junction and two additional biopsies from the GE junction. The sleeve was entered and it appeared to be of normal size. There was gastritis at the proximal stomach. There was no stricture or ulcer. Biopsies were obtained from the proximal sleeve as well as the distal antrum. No significant bleeding was noted from any of the biopsy sites. The scope was then advanced into the duodenum which appeared to be normal as well. At that point the duodenum ?and the sleeve were decompressed and the scope was withdrawn from the patient's mouth. The patient was awaken and was transferred in stable condition to the Recovery Room for further care. I was present and performed all steps of the procedure. There were no residents to assist with this case. Sergio Jaquez M.D., Ph.D. Surgeon: Leo Jaquez MD Anesthesia: MAC Was an Cleaner Assistant used for this Procedure?: No Estimated blood loss (mL): 0 IV fluids (mL): 400 Urine output (mL): 0 Pathology: other (1) antrum x1, 2) proximal sleeve/gastric fundus x1, 3) EGJ x2, 4) distal esophagus x2) Condition: stable Disposition: PACU
[2023-07-25 14:06] VITALS: BP 116/66; PULSE 102; RESP 16; TEMP 36.6; O2SAT 96
[2023-07-25 14:20] VITALS: BP 144/90; PULSE 79; RESP 16; O2SAT 96
[2023-07-25 14:35] VITALS: BP 152/92; PULSE 81; RESP 16; O2SAT 97
[2023-07-25 14:50] VITALS: BP 131/74; PULSE 78; RESP 16; TEMP 36.1; O2SAT 97
== END 2023-07-25 15:25 | disposition home or self-care (01) ==
PROVIDERS: Nurse Practitioner; PCP Internal Medicine; Visit Provider Surgery
PROC: 0DJ08ZZ Inspection of Upper Intestinal Tract, Via Natural or Artificial Opening Endoscopic (ICD-10-PCS; CPT 43235; principal; 2023-07-25 15:00)
DX: K21.9 Gastro-esophageal reflux disease without esophagitis (principal); Z98.84 Bariatric surgery status; Z90.3 Acquired absence of stomach [part of]; E66.9 Obesity, unspecified; Z68.35 Body mass index [BMI] 35.0-35.9, adult; K29.50 Unspecified chronic gastritis without bleeding; K20.80 Other esophagitis without bleeding; K44.9 Diaphragmatic hernia without obstruction or gangrene; I10 Essential (primary) hypertension; J45.909 Unspecified asthma, uncomplicated; Z79.899 Other long term (current) drug therapy; Z88.8 Allergy status to other drugs, medicaments and biological substances
CPT/HCPCS: 43239; 81025; 88305; 88342; J2250; J2405; J2704

== ENCOUNTER → 2023-07-25 12:35 | Outpatient (BNV) | payer OTHER, SELFPAY | PROVIDERS: PCP Internal Medicine; Visit Provider Surgery | DX: K21.00 Gastro-esophageal reflux disease with esophagitis, without bleeding (principal); K29.70 Gastritis, unspecified, without bleeding; Z90.3 Acquired absence of stomach [part of]; Z98.84 Bariatric surgery status | CPT/HCPCS: 43239 ==

== ENCOUNTER 2023-08-21 15:30 | Outpatient (AMB) | payer OTHER, SELFPAY ==
--- NOTE | 2023-08-21 13:41 | A.OFFVIS_ITS ---
Intake VS Expanded 08/21/23 15:40 Height 5 ft 4 in Weight 201 lb BMI 34.5 Intake Visit Reasons: VIDEO F/U SWL Allergies diphenhydramine [From Benadryl] Allergy (Verified 07/25/23 12:57) Hives HPI HPI Comments History of Present Illness Details 38 yo woman s/p LSG and HH repair with Dr Snowden on returned sith c/o GERD and inadequate weight loss. EGD done by Dr Gupta on 07/25/23 revealed: -4 cm HH -redundant proximal fundus -Esophagitis, treated with pantoprazole and carafate. Biopsies - minimal chronic inactive gastritis, esophagitis and negative for h pylori. No improvement in GERD symptms yet- haivn a hard time swallowing pantoprazole. Dr Gupta approved revision of LSG and repair of HH. TBWL since 04/29/23 is 19 lbs or 8.6%. Her weight that day was 220 lbs. Wants to plan surgery for week of November 04. meal plan: went off plan during time has now restarted. Carafate immediately upon waking 5:30, then takes her other meds at 6- 6:30. 7:30 am - Premier powder with water. sti ll drinks black coffee 12pm - Atkins premade - finishing this b ought a lot may have a bar at 3pm 6pm - 8 forks/spoons protein and vegetab les Exercise - alternate treadmill - speed 3.0 , incline 0-4, albright 320 calories and bike almost 300. TBP videos 2 d/ week.total days 4-5. Pre op work up completed as follows: [facility] classes - 04/23 appts - rescheduled to 07/11, follow up 08/28 RD appts - follow up on 07/16, follow up 08/28 H pylori - negative Jul 2022 Labs - done CXR - normal ECG - RBBB, ECHO and stress tests ordered - 05/31/23, and cards appt on 06/11. Cards testing ECHO Conclusions: - The left ventricular systolic function is normal. The calculated ejection fraction is 57% by biplane method. - There is moderately increased left mar tricular wall thickness. - No obvious valvular pathology seen on this study. Nuclear stress test - normal Received cardiology clearance from Dr Jorgito Ty - scanned in to chart on 07/02/23. ULS - 03/29 fatty liver UGI - 08/07 - small to moderate HH with reflux up to thoracic esophagus and slow clearing. EGD results - as above Contraception -Progestin only pill - no need to stop galen-operatively. PFSH Medical History Gastritis Asthma Hypertension Surgical History History of esophagogastroduodenoscopy (EGD) History of colonoscopy History of sleeve gastrectomy Family History Father HTN (hypertension) Mother HTN (hypertension) Paternal Grandfather CAD (coronary artery disease) Myocardial infarction Maternal Grandfather Stroke Social History Alcohol intake: former Patient Tobacco Use Status: Never used Tobacco Assessment & Plan Assessment & Plan (1) Obesity: Code(s): E66.9 - Obesity, unspecified Plan: 8.6% TBWL inpreparation for revision of LSG and HH repair. No change sto mealplan other than finding away for her powdered shakes not to clump Exercise - 5 d/ week - at least 300 calories each day. She was not taking the carafate and pantoprazole correctly - we reviewed it again and she will start now. I have asked her to text me in a few days for how this is going and any questions. Can break or crush pantoprazole if hard to swallow. Next appt with me in 3 weeks. Will retiem her appts with Jacquelyn and Lavonne. Patient is still obese and is not considered stable at this time. I spent 30 minutes in total speaking with the patient via video conference counseling , reviewing records and charting in patients chart. . (2) History of sleeve gastrectomy: Comment: LSG with hiatal hernia repair 10/27/2015 Code(s): Z90.3 - Acquired absence of stomach [part of] (3) GERD (gastroesophageal reflux disease): Code(s): K21.9 - Gastro-esophageal reflux disease without esophagitis (4) Esophagitis: Code(s): K20.90 - Esophagitis, unspecified without bleeding Plan see above Telehealth Telehealth Location of provider rendering services: practice address Location of patient: address on file Patient Identification confirmed using: Name, : Yes Telehealth method: video Patient verbally consented to treatment: Yes Patient verbally consented to billing insurance company: Yes Patient informed of any privacy concerns related to visit: Yes Coding Level of Care Code Tele Est Pt Level 4 (12237) Diagnoses Obesity E66.9 History of sleeve gastrectomy Z90.3 GERD (gastroesophageal reflux disease) K21.9 Esophagitis K20.90
[2023-08-21 15:40] VITALS: BMI 34.5
== END 2023-08-21 16:02 | disposition home or self-care (01) ==
LOC: HO.HBS 16:00
PROVIDERS: PCP Internal Medicine; Visit Provider Physician Assistant
DX: E66.9 Obesity, unspecified (principal); Z90.3 Acquired absence of stomach [part of]; K21.9 Gastro-esophageal reflux disease without esophagitis; K20.90 Esophagitis, unspecified without bleeding
CPT/HCPCS: 99214

== ENCOUNTER → 2023-08-21 15:30 | Outpatient (BNVA) | payer OTHER, SELFPAY | PROVIDERS: PCP Internal Medicine; Visit Provider Physician Assistant | DX: E66.9 Obesity, unspecified (principal); Z90.3 Acquired absence of stomach [part of]; K21.9 Gastro-esophageal reflux disease without esophagitis ==

== ENCOUNTER 2023-08-28 15:48 | Outpatient (AMB) | payer OTHER, SELFPAY ==
--- NOTE | 2023-08-28 15:50 | MHC.WMTHER ---
Intake Intake Visit Reasons: VIDEO F/U SWL Allergies diphenhydramine [From Benadryl] Allergy (Verified 07/25/23 12:57) Hives [facility] Medical History Gastritis Asthma Hypertension Surgical History History of esophagogastroduodenoscopy (EGD) History of colonoscopy History of sleeve gastrectomy Family History Father HTN (hypertension) Mother HTN (hypertension) Paternal Grandfather CAD (coronary artery disease) Myocardial infarction Maternal Grandfather Stroke Social History Alcohol intake: former Patient Tobacco Use Status: Never used Tobacco Behavioral Health Assessment Weight Management Therapy Therapy Notes Details She reported today doing well. Discussed thanksgiving and self defeating thoughts she has always struggled with. Also talked about parenting and the little bit of time she has to herself Pt is looking to have weight loss surgery revision to help improve her health and quality of life. She reported that she was drinking in the past everyday 1-2 drinks. She stated that she has not had a drink since this past summer. She reported being in therapy during the pandemic due to grief, stress, and drinking. She denied any other mental health treatment. Patient reported struggling with pain from hernia and also acid reflux, she had gastric sleeve in 2016. Presenting Concerns Referral Source provider Reason for referral weight loss surgery evaluation Precipitating Event obesity Living Situation At risk of losing current housing? No Satisfied with current living situation? Yes Comments Patient lives with her two years old. Food/Weight/Diet Expectations of change weight loss and maintenance History/Relationship with food Patient stated that she would eat to fill a void before. Her grandmother often showed her and her family love by cooking and feeding them. She reported eating fast food almost daily before starting the program. History/Relationship with weight Patient stated that she has always struggled with her weight. History/Relationship with dieting 220lbs previous to gastric sleeve and then down to 170lb at her lowest. She is now back to 220lbs. WW, [place] Protein Binge Eating Do you frequently eat large amounts of food in short periods of time, not feeling physically hungry? No Do you feel out of control when you eat a large amount of food in a short period of time? No Do you eat large amounts of food rapidly and typically alone? No Night Eating Do you wake up at least once during the night to eat? No If you wake up in the night, do you find that it is necessary to eat something in order to fall back asleep? No Do you have little or no appetite in the morning and feel very hungry in the evening, often overeating between dinner and when you go to bed? Yes Social History Family history and relationship Patietn Parental/Familial housekeeping laundry worker obligations 2 year old son that she co parents with his father. Also her parents watch him while she work. Social support sister, parents Legal Involvement and History Current or historical involvement with the legal system? none known Education Preferred learning style Auditory, Verbal, Written, Learn by doing and Visual Currently enrolled in educational program? No Interested in further educational program? 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 No Meaningful activities going for walks and spending time with her son Financial Situation Describe current financial situation Occasional struggle Financial assistance? None Service Service? No Mental Health and Addiction Treatment Current/Past substance abuse? Yes Comments Patient reported some daily drinking habits in the past. Current/Past addictive behavior concerns? No Medical and Physical Health Summary Physical exam in the last year? Yes Pain Screening Current pain? No Pain in the last few months? No Medications Is the patient compliant with medications? Yes Does the patient have Scott Guardian in place? Not applicable Does the patient use complimentary health approaches? No Trauma/Abuse History History of trauma? Yes Other Past Assessment & Plan Assessment & Plan (1) Adjustment disorder, unspecified: Code(s): F43.20 - Adjustment disorder, unspecified (2) History of sleeve gastrectomy: Comment: LSG with hiatal hernia repair 10/27/2015 Code(s): Z90.3 - Acquired absence of stomach [part of] Plan Patient some reported emotional struggles in the past. She also recently stopped drinking, (having one or two drinks daily prior to that). Patient is doing well and has no major issues. She is cleared for surgery when ready. Telehealth Telehealth Location of provider rendering services: practice address Location of patient: other Patient Identification confirmed using: Name, : Yes Telehealth method: video Patient verbally consented to treatment: Yes Patient verbally consented to billing insurance company: Yes Patient informed of any privacy concerns related to visit: Yes Minutes spent on Phone/Video with Pt.: 35 Coding Level of Care Code Tele Psytx 30 mins (64039) Diagnoses Adjustment disorder, unspecified F43.20 History of sleeve gastrectomy Z90.3 Time Spent (min) 35
== END 2023-08-28 15:57 | disposition home or self-care (01) ==
LOC: HO.HBST 15:48
PROVIDERS: PCP Internal Medicine; Visit Provider Counselor Mental Health
DX: F43.20 Adjustment disorder, unspecified (principal); Z90.3 Acquired absence of stomach [part of]
CPT/HCPCS: 90832

== ENCOUNTER → 2023-08-28 15:48 | Outpatient (BNVA) | payer OTHER, SELFPAY | PROVIDERS: PCP Internal Medicine; Visit Provider Counselor Mental Health ==

== ENCOUNTER 2023-08-29 15:37 | Outpatient (AMB) | payer OTHER, SELFPAY ==
--- NOTE | 2023-08-29 15:31 | A.OFFVIS_ITS ---
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 we discussed thanksgiving, did well with mostly choosing protein and veg for nourishment, and indulging on 2 items. But reports even this left her feeling uncomfortable physically, and emotionally/mentally unwell. we talked about the neeed to reevaluate balance and what feels best, and practicing mindful choices Exercise: walking and exercise videos 4 times per week her sister has a treadmill at home and lives right below her , so she plans to start a treadmill walking routine - she is also receptive to purchasing a stationary bike SWL online classes: completed Dietary counseling reduction Diagnosis Nutrition problem #1 overweight/obesity As related to (etiology) #1 excess energy intake and physical inactivity As evidenced by (sign/symptom) #1 high BMI Monitoring/Goals Nutrition problem monitoring total energy intake, level of knowledge/skill, total PRO intake, total CHO intake and weight Outcome progress progressing Learning/Education Readiness to learn good Stages of change action Most Recent Diabetes Results: No Data to Display [facility] Medical History Gastritis Asthma Hypertension Surgical History History of esophagogastroduodenoscopy (EGD) History of colonoscopy History of sleeve gastrectomy Family History Father HTN (hypertension) Mother HTN (hypertension) Paternal Grandfather CAD (coronary artery disease) Myocardial infarction Maternal Grandfather Stroke Social History Alcohol intake: former Patient Tobacco Use Status: Never used Tobacco Assessment & Plan Assessment & Plan (1) Obesity (BMI 30-39.9): Code(s): E66.9 - Obesity, unspecified Plan Patient is cleared from a nutrition standpoint for bariatric surgery. Educational requirements have been completed. Reviewed vitamin supplementation and commitment to protein shake for several months post surgery. Encouraged communication with office as needed Telehealth Telehealth Location of provider rendering services: practice address Location of patient: other (her car, not driving ) Patient Identification confirmed using: Name, : Yes Telehealth method: video Patient verbally consented to treatment: Yes Patient verbally consented to billing insurance company: Yes Patient informed of any privacy concerns related to visit: Yes Minutes spent on Phone/Video with Pt.: 20 Coding Level of Care Code Nutr Indiv Subseq ([id number]) Diagnoses Obesity (BMI 30-39.9) E66.9 Time Spent (min) 20
== END 2023-08-29 15:52 | disposition home or self-care (01) ==
LOC: HO.HBS 15:37
PROVIDERS: PCP Internal Medicine; Visit Provider Dietitian, Registered
DX: E66.9 Obesity, unspecified (principal)

== ENCOUNTER → 2023-08-29 15:37 | Outpatient (BNVA) | payer OTHER, SELFPAY | PROVIDERS: PCP Internal Medicine; Visit Provider Dietitian, Registered | DX: E66.9 Obesity, unspecified (principal) | CPT/HCPCS: 97803 ==

== ENCOUNTER 2023-10-03 16:32 | Outpatient (AMB) | payer OTHER, SELFPAY ==
--- NOTE | 2023-10-03 13:25 | MHC.OFFVISWM ---
Intake VS Expanded 10/03/23 16:33 Height 5 ft 4 in Weight 202 lb BMI 34.7 Intake Visit Reasons: VIDEO F/U SWL Allergies diphenhydramine [From Benadryl] Allergy (Verified 07/25/23 12:57) Hives HPI HPI Comments History of Present Illness Details 38 yo woman s/p L SG and HH repair w ith Dr Isi pedraza wiliu c/o G ERD and inadequate weight loss. EGD done by Dr Gupta on revealed:-4 cm HH-redundant pr oximal fundus-Esop hagitis, treated w ith pantoprazole a nd carafate. 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 No improv ement in GERD symp tms yet- haivng a hard time swallowi ng pantoprazole. Juwan Gupta approved paulette ion of LSG and rep air of HH. TBWL since 04/29/23 (renato ght of 220 lbs) is 18 lbs or 8.2%. W ants to plan surge ry for week of Oct ruary . Now w orking 2 jobs. m eal plan: Carafat e immediately upon waking 4:30, then takes her other m eds at 6- 6:30. 6 :30 am - Premier p owder with water a nd [place] powder 1 1pm - shake 3pm - [employer] bar 5:30 p m - 6 -8 forks pro tein and vegetable s Exercise - 2 d/ wk treadmill - spe ed 3.0 , incline 0 -4, albright 330 miguelito evelyn, 1-2 d/wk bik e almost 300. Pr e op work up compl eted as follows: [facility] classes - 04/23 BH appts - resche duled to 07/11, fo llow up 08/28, juanita ared RD appts - follow up on , follow up , cleared H pyl dayanna - negative Jul 2022 Labs - done CXR - normal ECG - RBBB, ECHO and st ress tests ordered - 05/31/23, and ca rds appt on 06/11. Cards testing ECHO Conclusions: - T he left ventricula r systolic functio n is normal. The calculated ejecti on fraction is 57% by biplane method . There is moderat xavier increased left ventricular wall thickness. - No ob vious valvular pat hology seen on thi s study. Nuclear stress test - nor mal Received ca rdiology clearance from Dr Jorgito Collins son - scanned in t o chart on 3. ULS - 03/29 fatty liver UGI - 08/07 - sm all to moderate HH with reflux up to thoracic esophagu s and slow clearin g. EGD results - as above Contrace ption -Progestin o nly pill - no need to stop galen-oper atively. PFSH PFSH Medical History Gastritis Asthma Hypertension Surgical History History of esophagogastroduodenoscopy (EGD) History of colonoscopy History of sleeve gastrectomy Family History Father HTN (hypertension) Mother HTN (hypertension) Paternal Grandfather CAD (coronary artery disease) Myocardial infarction Maternal Grandfather Stroke Social History Alcohol intake: former Patient Tobacco Use Status: Never used Tobacco Assessment & Plan Assessment & Plan (1) Obesity: Code(s): E66.9 - Obesity, unspecified Plan: Pt has lost 8% TBWL so far and has completed all pre operative work up for revision of previous LSG. Her mother has new diagnosis of leukemia which creates issues for her and childcare. she is not sure if she will have the help she needs to have surgery in October as previously desired. We discussed that she does not need to worry about timing, continuous weight loss is her goal and she will have her hernia reparied with revision when she is ready. No changes to meal plan. Exercise - bike for 400 shailesh 5d/ week - try Spin class videos - use exercise as stress clinical liaison. Next appt with me in 3 weeks, continue to send weekly weights and if she reaches her pre op goal weight and is ready will move her next appt to Dr Gupta. Patient is still obese and is not considered stable at this time. I spent 23 minutes in total speaking with the patient via video conference counseling , reviewing records and charting in patients chart. . (2) GERD (gastroesophageal reflux disease): Code(s): K21.9 - Gastro-esophageal reflux disease without esophagitis (3) History of sleeve gastrectomy: Comment: LSG with hiatal hernia repair 10/27/2015 Code(s): Z90.3 - Acquired absence of stomach [part of] Plan see above Telehealth Telehealth Location of provider rendering services: practice address Location of patient: address on file Patient Identification confirmed using: Name, : Yes Telehealth method: video Patient verbally consented to treatment: Yes Patient verbally consented to billing insurance company: Yes Patient informed of any privacy concerns related to visit: Yes Coding Level of Care Code Tele Est Pt Level 4 (60039) Diagnoses Obesity E66.9 GERD (gastroesophageal reflux disease) K21.9 History of sleeve gastrectomy Z90.3
[2023-10-03 16:33] VITALS: BMI 34.7
== END 2023-10-03 16:54 | disposition home or self-care (01) ==
LOC: HO.HBS 16:32
PROVIDERS: PCP Internal Medicine; Visit Provider Physician Assistant
DX: E66.9 Obesity, unspecified (principal); K21.9 Gastro-esophageal reflux disease without esophagitis; Z90.3 Acquired absence of stomach [part of]
CPT/HCPCS: 99214

== ENCOUNTER → 2023-10-03 16:32 | Outpatient (BNVA) | payer OTHER, SELFPAY | PROVIDERS: PCP Internal Medicine; Visit Provider Physician Assistant | DX: E66.9 Obesity, unspecified (principal); Z90.3 Acquired absence of stomach [part of]; K21.9 Gastro-esophageal reflux disease without esophagitis; K20.90 Esophagitis, unspecified without bleeding ==

== ENCOUNTER 2024-01-09 07:51 | Outpatient (AMB) | payer BC, MEDICAID, SELFPAY ==
--- NOTE | 2024-01-09 07:55 | A.OFFVIS_ITS ---
Vital Signs 01/09/24 07:56 Height 5 ft 4 in Weight 213 lb BMI 36.6 BP 140/64 H Blood Pressure Location Lt brachial Position Sitting Pulse 85 Intake Visit Reasons: 6 month follow up GERD Intake Note: Patient follow up for GERD. Patient cc:upper abdominal pain with bloating on and off, acid reflex with burning sensation at night time, some dizziness and always tireness Central Scheduler Required: No Accompanied by: Self / Same As Patient Allergies diphenhydramine [From Benadryl] Allergy (Verified 01/09/24 07:54) Hives Medication List - Last Reconciled 01/09/24 by Patrick Chandra MD hydrochlorothiazide 25 mg PO DAILY hydrocortisone 2.5% 1 appl UT BID-QID PRN 2 weeks labetalol 200 mg PO TID norethindrone (contraceptive) 0.35 mg PO DAILY omeprazole TAKE 1 CAPSULE (40 MG) BY MOUTH TWICE DAILY FOR 60 DAYS sucralfate 1 g PO QIDACHS valsartan 80 mg PO DAILY HPI HPI 6 month follow up GERD: Details: GI CLINIC VISIT FOR THIS 38 YEAR FEMALE FOR FOLLOW-UP EVALUATION OF GERD AND ABDOMINAL PAIN.? PATIENT IS STATUS POST GASTRIC SLEEVE SURGERY IN? 2015. ?CHRONIC ILLNESSES:??HYPERTENSION, ASTHMA, lap sleeve gastrectomy and hiatal hernia repair 10/27/2015? by Dr Pa at [facility] ?LABS IN [facility]:?08/05 REVIEWED.? MINIMALLY ELEVATED LFTS. NORMAL IGA WITH NORMAL SEROLOGIES FOR CELIAC SPRUE?IMAGING STUDIES: 07/2022 UGI SHOWED: [id number] size hiatal hernia with free gastroesophageal reflux to the level of the thoracic inlet which clears very slowly with hypomotility of the esophagus. 07/[address] SCAN SHOWED:LIVER, GALLBLADDER, AND BILIARY TREE: The liver is normal in size, shape, and attenuation. No focal hepatic lesion or biliary ductal dilatation is present. The gallbladder is unremarkable with no evidence of radiopaque gallstones, gallbladder wall thickening, or obvious pericholecystic inflammatory changes.? GASTROINTESTINAL TRACT: Status post gastric surgery with surgical suture line along the greater curvature the stomach. No acute change of the bowel. No bowel obstruction. No bowel wall thickening or edema. Moderate volume of stool in colon. No diverticula. The appendix is normal. 07/2020? UGI WITH SBFT SHOWED:There is significant gastroesophageal reflux. There is a small fixed hiatal hernia. No esophageal mass or stricture is appreciated. There are postsurgical changes from gastric sleeve procedure. The stomach and duodenum are otherwise normal appearing. No fold thickening, mass, ulcer or stricture is seen. Postsurgical changes from gastric procedure.? 11/05 ABDOMINAL ULTRASOUND SHOWED:?There is diffuse hepatic echogenicity without any focal? lesions seen. ?The rest of the abdominal ultrasound is? unremarkable. ENDOSCOPIC STUDIES:? 01/14/23 EGD SHOWED: ESOPHAGUS:? GE junction at 34 cms, small hiatal hernia 34 to 36 cms. No esophagitis or Bass's.? Biopsies obtained from proximal esophagus to check for EOE and from distal esophagus to check for esophagitis. STOMACH: Minimal antral gastritis Plan: Patient advised to increase Omeprazole to 20 mg twice daily to manage persistent GERD symptoms. 03/2020 EGD WAS PERFORMED BY DR. PA:GE junction located at 34 cm from the incisors. No evidence of hiatal hernia. No evidence of significant gastritis of the gastric pouch. There was no evidence of stenosis or stricture. There was a slight amount of erythema at the gastric antrum. Biopsies showed mild chronic active gastritis and was negative for H pylori ?TODAY'S VISIT Patient cc:upper abdominal pain with bloating on and off, acid reflex with burning sensation at night time, some dizziness and always tiredness Mom being treated for leukemia and had a recent fall Has a 2.5 yr old son who is very active. Continues to have heartburn at night - does not eat of drink after 7 pm. Has to take 2 Omeprazole to alleviate her symptoms Having back pain and seeing the kidney doctor next week. Taking 3 medications for blood pressure and has dizziness PAST VISITS: Heartburn is a lot better since she started the wt management program wt loss from 222 to 205 Taking Omeprazole and Famotidine and notes mild heartburn symptoms every 3-4 days - more at night. Has dinner around 6 pm and goes to bed at 9:30 or 10 am. Pt is being evaluated for gastric sleeve revision. Lab results reviewed - LFTs are normal now since pt lost wt. Pt complains of prolapsing hemorrhoids - prescribed hydrocortisone cream Clinic visit change to TV since pt has COVID. EGD results reviewed. Continues to have heartburn despite taking Omeprazole 40 mg twice daily and Famotidine twice a day. Has not been Accompanied by her 1 year old baby. Concerned about H Pylori since her Mom had HP a year She is scheduled for HP breath test on 07/25/22 in Bariatric Surgery clinic Has been having heartburn daily despite taking the Omeprazole - worse at night. Notes abd discomfort in her abdomen. Had to vomit last night. Trying to follow the diet plan given by Zena Das. Tries not to eat after 7 and goes to sleep at 9 or 10. Has to vomit sometimes since heartburn gets really bad. Noted pinkish fluid once. Denies dysphagia or chest pain. Notes abdominal discomfort and bloating. Has a BM 1-2 times a day (intermittent BMs with urgency). Feels she has been gaining weight. Does not eat much since she does not feel good. ?Just started using the portal? and had questions about her labs. ?Lab results were reviewed showing? minimally elevated LFTs. ?Ex boyfriend was a Heroin addict and may have?had Hepatitis C. ?Also had elevated iron levels, she was advised to? stop oral iron by Dr. Pa. ?Abd pain has improved with? Carafate. ?She is taking OTC ?Dithenhycramine prn for seasonal? allergies. ?Patient has an appointment later today with Dr. Pa to? discuss and scheduled an EGD. ?Did fine for the? 1st year after Gastric Sleeve surgery. ?Has been doing Ok and? medications have been helping. ?Noted increased pain associated with? stress. ?Started taking Vitamin C ?Has been having epigastric? pain and sometimes radiates to the back. ?Pain is stabbing and 8-9/10? in intensity ?Pain comes randomly- has pain every other? day. ?Has been cutting back on coffee and spicy food - does not eat a? lot. ?Unclear why she is gaining weight. ?Does not eat since? she does not feel good and notes post prandial fullness and makes her self throw? up so the discomfort go away ?Throws up if she eats too?much. ?Has been taking Omerpazole for years - notes burning if she? forgets to t melody it. ?Increased stress at work since she works with [employer] ?Had an UGI last April -? normal per patient. ?No? trouble with BM ?Has hemorrhoids with rectal bleeding in the past and? none recently. ? Weighed 230 lbs before the surgery ? Decreased to 170 lbs a year post surgery. ? Weight gain back to? baseline ? Had EGD and colonoscopy several years. ? Has? snoring and having a hard time sleeping lately due to GI problems. ? Denies major cardiac or pulmonary problems ? Denies known FH of colon? polyps or colon cancer [facility] Medical History Gastritis Asthma Hypertension Surgical History History of esophagogastroduodenoscopy (EGD) History of colonoscopy History of sleeve gastrectomy Family History Father HTN (hypertension) Mother HTN (hypertension) Paternal Grandfather CAD (coronary artery disease) Myocardial infarction Maternal Grandfather Stroke Social History Alcohol intake: former Patient Tobacco Use Status: Never used Tobacco Review of Systems Const All systems reviewed & are unremarkable except as noted in HPI and below Physical Exam Vital Signs: Last Vital Signs Pulse 85 01/09/24 07:56 BP 140/64 H 01/09/24 07:56 BMI result Body Mass Index 36.6 Const General: no acute distress and anxious Nutritional Appearance: obese Orientation/consciousness: patient oriented x3 Limitations: no limitations HEENT Head: Yes normal to inspection Ears: hearing grossly normal bilaterally Eyes Sclerae: sclerae normal Pupils: Equal, round and reactive pupils present Neck Neck: Yes normal visual inspection Chest Chest palpation & inspection: normal inspection of the chest Resp Effort & Inspection: normal respiratory effort Auscultation: clear to auscultation bilaterally Cardio Palpation: normal PMI Rate: regular rate Rhythm: regular rhythm Heart sounds: S1 normal heart sound present, S2 normal heart sound present and no murmurs GI Palpation (GI): Soft to palpation, nontender and No hepatosplenomegaly present Auscultation: normal bowel sounds Rectal Exam - Female: deferred Skin General skin exam: no rashes or lesions noted Neuro General: patient oriented x3, gait normal and moves all extremities Cranial nerves: Yes Equal, round and reactive pupils present Psych Appearance: grossly normal Mental Status: mental status grossly normal Assessment & Plan Assessment & Plan (1) History of sleeve gastrectomy: Comment: LSG with hiatal hernia repair 10/27/2015 Code(s): Z90.3 - Acquired absence of stomach [part of] Category: Surgical (2) GERD (gastroesophageal reflux disease): Code(s): K21.9 - Gastro-esophageal reflux disease without esophagitis Category: Medical (3) RUQ abdominal pain: Code(s): R10.11 - Right upper quadrant pain Category: Medical (4) Hemorrhoids: Code(s): K64.9 - Unspecified hemorrhoids Category: Medical (5) Esophagitis: Code(s): K20.90 - Esophagitis, unspecified without bleeding Category: Medical Plan 38 YF with HTN and asthma followed in GI for heartburn, intermittent episodes of? abdominal pain, early satiety, nausea and vomiting. Pt is status post lap sleeve?gastrectomy and hiatal hernia repair 10/27/[address] Pa at [facility]?and is complaining of weight gain over the past 2 years. Her symptoms may be?related to peptic ulcer disease, GERD, stricture or stenosis of Gastric Sleeve.? Her symptoms have improved with omeprazole and Carafate. Recent LFTs were?slightly elevated and abdominal ultrasound showed a fatty liver. Patient was? advised to start vitamin E 400 IU twice daily for fatty liver and work on weight? reduction. 07/2020 UGI showed significant gastroesophageal reflux and small fixed hiatal hernia.? Postsurgical changes from gastric procedure.? 07/2022 repeat UGI was performed in findings as noted above EGD was performed in findings as noted above. Pt was advised to take Famotidine 20 mg twice daily and take Omeprazole 40 mg - 30 min before dinner for control of nocturnal symptoms. 03/04/23 Pt advised to stop Famotidine and start liquid carafate twice daily. Pt was advised to schedule a FU appt with bariatric surgery due to wt gain and persistent GERD symptoms to see if she would benefit from conversion to a gastric bypass. (message sent to Zena Das) 07/12/23 Heartburn is a lot better since she started the wt management program wt loss from 222 to 205 Taking Omeprazole and Famotidine and notes mild heartburn symptoms every 3-4 days - more at night. Pt is being evaluated for gastric sleeve revision. Pt complains of prolapsing hemorrhoids - prescribed hydrocortisone cream Advised to call back if no relief for referral to surgery. 01/09/24 Continues to have heartburn at night - does not eat of drink after 7 pm. Has to take 2 Omeprazole to alleviate her symptoms Advised to take sucralfate slurry at bedtime Planning to have revision of hiatal hernia repair and revision of gastric sleeve once she has adequate support at home ? Fu in 4 months COMPLICATIONS OF? SLEEVE GASTRECTOMY (FROM uptodate): Stricture or stenosis of the SG A? stricture, angulation, or corkscrew configuration of the sleeve can result in? nausea, heartburn, vomiting, and chest pain or abdominal pain due to changes in? the lower esophageal sphincter pressure (image 30 and picture 5) [33-36]. This? may occur soon after surgery or can appear weeks to months after the? operation. The most common reasons for the development of narrowing or? stenosis are over- sewing the staple line and using a bougie that is too small. A? stricture may also occur adjacent to a leak. The gastroesophageal junction and? the incisura angularis are the two most common areas where stenosis occurs, and? this can be diagnosed by a UGI series, which will show kinking, tortuosity, or a? long thinning or lack of progression of contrast. Management of stenosis? primarily consists of endoscopic dilation. If the area of stenosis is too long,? surgical intervention may be necessary with conversion to a gastric bypass,? gastric stricturoplasty, or resection with gastrogastrostomy. Dilated SG A? dilated sleeve may lead to failure of weight loss or weight regain. This can? best be assessed on limited UGI series (image 31) [37]. A dilated sleeve can be? corrected with a repeat gastric sleeve to reduce the gastric sleeve volume? [38]. Dumbbell SG A dumbbell sleeve is a wide, dilated fundus with a? relatively narrow midstomach but without complete obstruction. This can cause? nausea and vomiting after sleeve gastrectomy and can be identified on limited? UGI This may require conversion to a gastric bypass,? or the fundus may need to be re-sleeved. It is crucial to ensure that there is? not a stricture at the angularis prior to proceeding with a re-sleeve of the fundus Orders: Orders JANAE Reflex Titer and Pattern Today K21.9 - Gastro-esophageal reflux disease without esophagitis, R10.11 - Right upper quadrant pain Comprehensive Met. Panel Today K21.9 - Gastro-esophageal reflux disease without esophagitis, R10.11 - Right upper quadrant pain Complete Blood Count Auto Diff Today K21.9 - Gastro-esophageal reflux disease without esophagitis, R10.11 - Right upper quadrant pain C Reactive Protein Today K21.9 - Gastro-esophageal reflux disease without eso phagitis, R10.11 - Right upper quadrant pain TSH reflex Free T4 Today K21.9 - Gastro-esophageal reflux disease without esophagitis, R10.11 - Right upper quadrant pain Coding Level of Care Code Est Pt Level 4 (25692) Diagnoses History of sleeve gastrectomy Z90.3 GERD (gastroesophageal reflux disease) K21.9 RUQ abdominal pain R10.11 Hemorrhoids K64.9 Esophagitis K20.90 Time Spent (min) 21
[2024-01-09 07:56] VITALS: BP 140/64; PULSE 85; BMI 36.6
== END 2024-01-09 09:12 | disposition home or self-care (01) ==
PROVIDERS: PCP Internal Medicine; Visit Provider Internal Medicine Gastroenterology
DX: Z90.3 Acquired absence of stomach [part of] (principal); K21.9 Gastro-esophageal reflux disease without esophagitis; R10.11 Right upper quadrant pain; K64.9 Unspecified hemorrhoids; K20.90 Esophagitis, unspecified without bleeding
CPT/HCPCS: 99214

== ENCOUNTER 2024-01-09 07:51 | Outpatient (REF) | payer BC, SELFPAY ==
[2024-01-09 15:33] LABS: MANUAL DIFF FLAG NO
[2024-01-09 15:40] LABS: Basophils Percent Auto 0.5 % (0-2); Eosinophils Absolute Auto 0.4 X10*3/uL (0.0-0.4); Eosinophils Percent Auto 6.8 % (0-4); Hematocrit 35.4 % (37.0-47.0); Hemoglobin 11.6 g/dl (12.0-16.0); Imm Gran Abs Auto 0.02 X10*3/uL (0.00-0.03); Imm Gran Pct Auto 0.3 % (0.0-0.4); Lymphocytes Absolute Auto 1.7 X10*3/uL (1.2-4.9); Lymphocytes Percent Auto 28.4 % (20-40); Mean Corpuscular HGB Conc 32.8 g/dl (31.0-35.0); Mean Corpuscular Hemoglobin 29.6 pg (27.0-33.0); Mean Corpuscular Volume 90.3 fL (80.0-98.0); Mean Platelet Volume 9.9 fL (9.4-12.3); Monocytes Absolute Auto 0.7 X10*3/uL (0.1-1.2); Monocytes Percent Auto 11.3 % (2-11); Neutrophils Absolute Auto 3.1 x10*3/uL (2.0-8.3); Neutrophils Percent Auto 52.7 % (45-73); Platelet Count 207 X10*3/uL (160-400); Red Blood Count 3.92 X10*6/uL (4.20-5.50); Red Cell Distribution Width 14.7 % (11.0-16.0); White Blood Count 5.9 X10*3/uL (4.8-10.8)
[2024-01-09 16:18] LABS: Alanine Aminotransferase 38 U/L (0-31); Albumin Level 4.4 g/dL (3.5-5.0); Alkaline Phosphatase 77 U/L (39-117); Anion Gap 9 (12-20); Aspartate Amino Transferase 34 U/L (5-31); Bilirubin Total 0.2 mg/dL (0.0-1.0); Blood Urea Nitrogen 13 mg/dL (9-16); C Reactive Protein 0.97 mg/dL (< or = 0.50); Calcium 9.5 mg/dL (8.4-10.2); Carbon Dioxide 32 mmol/L (22-29); Chloride 103 mmol/L (96-108); Estimated Glomerular Filt Rate > 60; Glucose Random 96 mg/dL (60-115); Potassium 3.7 mmol/L (3.3-5.1); Sodium 140 mmol/L (135-145); Total Protein 7.3 g/dL (6.5-8.0)
[2024-01-09 16:27] LABS: TSH reflex Free T4 0.97 uIU/mL (0.32-4.0)
[2024-01-09 18:01] LABS: Magnesium 1.9 mg/dL (1.6-2.6)
[2024-01-13 12:28] LABS: Anti Nuclear Antibody Pattern Nuclear, Homogeneous; Anti Nuclear Antibody Screen POSITIVE (NEGATIVE)
== END 2024-01-09 07:52 | disposition home or self-care (01) ==
LOC: HO.LAB 07:51
PROVIDERS: PCP Internal Medicine; Visit Provider Internal Medicine Gastroenterology
DX: K21.9 Gastro-esophageal reflux disease without esophagitis (principal); R10.11 Right upper quadrant pain; K64.9 Unspecified hemorrhoids; K20.90 Esophagitis, unspecified without bleeding; Z90.3 Acquired absence of stomach [part of]
CPT/HCPCS: 36415; 80053; 83735; 84443; 85025; 86038; 86039; 86140

== ENCOUNTER 2024-07-16 10:07 | Emergency (ER) | payer OTHER, SELFPAY ==
[2024-07-16 10:33] VITALS: BP 151/77; PULSE 80; RESP 16; TEMP 36.8; BMI 31.9
--- NOTE | 2024-07-16 10:47 | ECG_ITS ---
Test Reason : dizziness Blood Pressure : / mmHG Vent. Rate : 075 BPM Atrial Rate : 075 BPM P-R Int : 148 ms QRS Dur : 140 ms QT Int : 472 ms P-R-T Axes : 050 063 012 degrees QTc Int : 527 ms Normal sinus rhythm Right bundle branch block Abnormal ECG When compared with ECG of 30-APR-2023 09:47, QT has lengthened Referred By: Generic ED Physician Electronically Signed By:PARVIN FLYNN
[2024-07-16 11:04] LABS: MANUAL DIFF FLAG NO
[2024-07-16 11:05] LABS: Basophils Percent Auto 0.7 % (0-2); Eosinophils Percent Auto 0.7 % (0-4); Hematocrit 39.9 % (37.0-47.0); Hemoglobin 13.5 g/dl (12.0-16.0); Imm Gran Abs Auto 0.01 X10*3/uL (0.00-0.03); Imm Gran Pct Auto 0.2 % (0.0-0.4); Lymphocytes Percent Auto 17.3 % (20-40); Mean Corpuscular HGB Conc 33.8 g/dl (31.0-35.0); Mean Corpuscular Hemoglobin 29.8 pg (27.0-33.0); Mean Corpuscular Volume 88.1 fL (80.0-98.0); Mean Platelet Volume 10.1 fL (9.4-12.3); Monocytes Absolute Auto 0.4 X10*3/uL (0.1-1.2); Neutrophils Absolute Auto 4.4 x10*3/uL (2.0-8.3); Neutrophils Percent Auto 74.1 % (45-73); Platelet Count 271 X10*3/uL (160-400); Red Blood Count 4.53 X10*6/uL (4.20-5.50); Red Cell Distribution Width 14.1 % (11.0-16.0); White Blood Count 5.9 X10*3/uL (4.8-10.8)
[2024-07-16 11:19] LABS: Alanine Aminotransferase 38 U/L (0-31); Albumin Level 4.5 g/dL (3.5-5.0); Alkaline Phosphatase 83 U/L (39-117); Anion Gap 18 (12-20); Aspartate Amino Transferase 40 U/L (5-31); Bilirubin Total 0.8 mg/dL (0.0-1.0); Blood Urea Nitrogen 10 mg/dL (9-16); Calcium 10.6 mg/dL (8.4-10.2); Carbon Dioxide 28 mmol/L (22-29); Chloride 97 mmol/L (96-108); Creatinine Clr Calc Pharmacy 113.4; Estimated Glomerular Filt Rate > 60; Glucose Random 100 mg/dL (60-115); Potassium 4.1 mmol/L (3.3-5.1); Sodium 139 mmol/L (135-145); Total Protein 7.5 g/dL (6.5-8.0)
== END 2024-07-16 17:31 | disposition left against medical advice (07) ==
PROVIDERS: Emergency Provider Emergency Medicine; PCP Internal Medicine
DX: R42 Dizziness and giddiness (principal); Z53.21 Procedure and treatment not carried out due to patient leaving prior to being seen by health care provider
CPT/HCPCS: 36415; 80053; 85025; 93005; 99281; 99283

== ENCOUNTER → 2024-07-16 10:47 | Outpatient (BNV) | payer MEDICAID, SELFPAY | PROVIDERS: Emergency Provider Emergency Medicine; PCP Internal Medicine; Visit Provider Internal Medicine | DX: R42 Dizziness and giddiness (principal); I45.10 Unspecified right bundle-branch block; R94.31 Abnormal electrocardiogram [ECG] [EKG] | CPT/HCPCS: 93010 ==